=== PATIENT | female | born 1995 ===

== ENCOUNTER 2019-11-29 18:04 | Inpatient (IN) | payer BC ==
[~2019-11-29] VITALS: Ht 160 cm; Wt 78.6 kg
[~2019-11-29 18:04] MED LIST: CEFU500T PO; HYDR-4226 PO
--- NOTE | 2019-11-29 18:25 | NUR ---
COVID SWAB DONE.
--- NOTE | 2019-11-29 18:26 | ED General ---
General Chief Complaint: Fever-Adult/Adol Stated Complaint: BODY ACHES/HEADACHE/LOWER BACK PAIN Source of Information: Patient Exam Limitations: No Limitations History of Present Illness Date Seen by Provider: Nov 29, 2019 Time Seen by Provider: 18:24 Initial Comments To ER with general weakness and malaise for the past 3 days. This started with some bilateral flank pain and urinary frequency and burning. She now has intermittent chest pain. Fevers present, no cough, no shortness of breath and no exposure to ill contacts. She is otherwise healthy. Had Tylenol at 3 PM no ibuprofen today. Timing/Duration: 1-2 Days Severity: Moderate Associated Systoms: Denies Symptoms Allergies and Home Medications Allergies Coded Allergies: No Known Drug Allergies (Unverified , 08/06/11) Home Medications Cefuroxime Axetil 500 Mg Tablet, 500 MG PO BID Prescribed by: CIRO SEVERINO on 01/21/15 1623 Hydrocodone/Acetaminophen 1 Each Tablet, 1 EACH PO Q4H PRN for PAIN Prescribed by: CIRO SEVERINO on 01/21/15 1623 Patient Home Medication List Home Medication List Reviewed: Yes Review of Systems Review of Systems Constitutional: see HPI, chills, fever, malaise, weakness EENTM: see HPI Respiratory: see HPI; No cough Cardiovascular: no symptoms reported Genitourinary: no symptoms reported Musculoskeletal: no symptoms reported Skin: no symptoms reported Psychiatric/Neurological: No Symptoms Reported Hematologic/Lymphatic: No Symptoms Reported Immunological/Allergic: no symptoms reported Past Jiugctv-Tezrbn-Kklsny Hx Patient Social History Recent Foreign Travel: No Contact w/Someone Who Travel: No Immunizations Up To Date Tetanus Booster (TDap): Less than 5yrs PED Vaccines UTD: Yes Seasonal Allergies Seasonal Allergies: No Past Medical History Surgeries: No Respiratory: No Cardiac: No Neurological: No Female Reproductive Disorders: Menstrual Problems Gastrointestinal: No Musculoskeletal: No Endocrine: No Cancer: No Psychosocial: No Integumentary: No Physical Exam Vital Signs Vital Signs - First Documented 11/29/19 18:15 Temp 38.9 Pulse 142 Resp 16 B/P (MAP) 152/91 (111) Pulse Ox 99 O2 Delivery Room Air Capillary Refill : Height, Weight, BMI Height: 5'3" Weight: 120lbs. oz. 54.507304ow; BMI Method:Estimated General Appearance: No Apparent Distress, WD/WN Eyes: Bilateral Eye Normal Inspection, Bilateral Eye PERRL, Bilateral Eye EOMI Neck: Full Range of Motion, Normal Inspection Respiratory: No Accessory Muscle Use, No Respiratory Distress Cardiovascular: Normal Peripheral Pulses, Tachycardia Gastrointestinal: Normal Bowel Sounds, Non Tender, Soft Extremity: Normal Capillary Refill, Normal Inspection Neurologic/Psychiatric: Alert, Oriented x3 Skin: Normal Color, Warm/Dry Focused Exam Lactate Level 11/29/19 18:25: Lactic Acid Level 0.87 Lactic Acid Level Laboratory Tests Test 11/29/19 18:25 Lactic Acid Level 0.87 MMOL/L (0.50-2.00) Progress/Results/Core Measures Suspected Sepsis SIRS Temperature: Pulse: Respiratory Rate: Laboratory Tests 11/29/19 18:25: White Blood Count 20.6H Blood Pressure / Mean: 11/29/19 18:25: Lactic Acid Level 0.87 Laboratory Tests 11/29/19 18:25: Creatinine 0.76, Platelet Count 231, Total Bilirubin 1.7H Results/Orders Lab Results Laboratory Tests Test 11/29/19 18:20 11/29/19 18:25 11/29/19 18:30 Range/Units Urine Color DARK YELLOW Urine Clarity SL CLOUDY Urine pH 6.0 5-9 Urine Specific [place] 1.020 1.016-1.022 Urine Protein 1+ H NEGATIVE Urine Glucose (UA) NEGATIVE NEGATIVE Urine Ketones NEGATIVE NEGATIVE Urine Nitrite NEGATIVE NEGATIVE Urine Bilirubin NEGATIVE NEGATIVE Urine Urobilinogen 1.0 < = 1.0 MG/DL Urine Leukocyte Esterase 2+ H NEGATIVE Urine RBC (Auto) 1+ H NEGATIVE Urine RBC RARE /HPF Urine WBC 50-100 H /HPF Urine Squamous Epithelial Cells 10-25 H /HPF Urine Crystals NONE /LPF Urine Bacteria MODERATE H /HPF Urine Casts NONE /LPF Urine Mucus MODERATE H /LPF Urine Culture Indicated YES White Blood Count 20.6 H 4.3-11.0 10^3/uL Red Blood Count 4.58 4.35-5.85 10^6/uL Hemoglobin 14.2 11.5-16.0 G/DL Hematocrit 41 35-52 % Mean Corpuscular Volume 90 80-99 FL Mean Corpuscular Hemoglobin 31 25-34 PG Mean Corpuscular Hemoglobin Concent 34 32-36 G/DL Red Cell Distribution Width 12.6 10.0-14.5 % Platelet Count 231 130-400 10^3/uL Mean Platelet Volume 10.2 7.4-10.4 FL Neutrophils (%) (Auto) 87 H 42-75 % Lymphocytes (%) (Auto) 6 L 12-44 % Monocytes (%) (Auto) 7 0-12 % Eosinophils (%) (Auto) 0 0-10 % Basophils (%) (Auto) 0 0-10 % Neutrophils # (Auto) 18.0 H 1.8-7.8 X 10^3 Lymphocytes # (Auto) 1.2 1.0-4.0 X 10^3 Monocytes # (Auto) 1.4 H 0.0-1.0 X 10^3 Eosinophils # (Auto) 0.0 0.0-0.3 10^3/uL Basophils # (Auto) 0.0 0.0-0.1 10^3/uL Neutrophils % (Manual) 91 % Lymphocytes % (Manual) 1 % Monocytes % (Manual) 5 % Eosinophils % (Manual) 0 % Basophils % (Manual) 0 % Band Neutrophils 1 % Reactive Lymphocytes 2 % Blood Morphology Comment NORMAL Sodium Level 137 135-145 MMOL/L Potassium Level 3.9 3.6-5.0 MMOL/L Chloride Level 105 98-107 MMOL/L Carbon Dioxide Level 19 L 21-32 MMOL/L Anion Gap 13 5-14 MMOL/L Blood Urea Nitrogen 7 7-18 MG/DL Creatinine 0.76 0.60-1.30 MG/DL Estimat Glomerular Filtration Rate > 60 BUN/Creatinine Ratio 9 Glucose Level 120 H 70-105 MG/DL Lactic Acid Level 0.87 0.50-2.00 MMOL/L Calcium Level 9.6 8.5-10.1 MG/DL Corrected Calcium 8.5-10.1 MG/DL Total Bilirubin 1.7 H 0.1-1.0 MG/DL Aspartate Amino Transf (AST/SGOT) 14 5-34 U/L Alanine Aminotransferase (ALT/SGPT) 11 0-55 U/L Alkaline Phosphatase 88 40-136 U/L C-Reactive Protein High Sensitivity 4.78 H 0.00-0.50 MG/DL Total Protein 8.1 6.4-8.2 GM/DL Albumin 4.6 H 3.2-4.5 GM/DL Serum Test, Qualitative NEGATIVE NEGATIVE My Orders Orders - CIRO SEVERINO HOSE BUILDER Cbc With Automated Diff (11/29/19 18:14) Comprehensive Metabolic Panel (11/29/19 18:14) Hcg,Qualitative Serum (11/29/19 18:14) Ed Iv/Invasive Line Start (11/29/19 18:14) Chest 1 View, Ap/Pa Only (11/29/19 18:14) Hs C Reactive Protein (11/29/19 18:14) Coronavirus Sars-Cov-2 So 2018 (11/29/19 18:14) Ibuprofen Tablet (Motrin Tablet) (11/29/19 18:30) Ns Iv 1000 Ml (Sodium Chloride 0.9%) (11/29/19 18:30) Blood Culture (11/29/19 18:23) Lactic Acid Analyzer (11/29/19 18:23) Manual Differential (11/29/19 18:25) Ceftriaxone For Iv Use (Rocephin For I (11/29/19 19:00) Medications Given in ED Current Medications Medications Dose Ordered Sig/Carloz Route Start Time Stop Time Status Last Admin Dose Admin Ibuprofen 800 mg ONCE ONCE PO 11/29/19 18:30 11/29/19 18:31 DC 11/29/19 18:37 800 MG Vital Signs/I&O 11/29/19 18:15 Temp 38.9 Pulse 142 Resp 16 B/P (MAP) 152/91 (111) Pulse Ox 99 O2 Delivery Room Air Capillary Refill : Departure Communication (Admissions) Time/Spoke to Admitting Phy: 19:[address] Stanley, will admit observation status IV fluids Rocephin. Impression Primary Impression: Urinary tract infection Qualified Codes: N39.0 - Urinary tract infection, site not specified; R31.9 - Hematuria, unspecified Additional Impression: Sepsis Qualified Codes: A41.9 - Sepsis, unspecified organism Disposition: ADMITTED INPATIENT Condition: Stable Admissions Decision to Admit Reason: Admit from ER (General) Decision to Admit/Date: Nov 29, 2019 Time/Decision to Admit Time: 19:10 Departure-Patient Inst. Referrals: [facility] [place]) Primary Care Physician CIRO SEVERINO APRN Nov 29, 2019 18:26
[2019-11-29] MEDS ORDERED: IBUPROFEN 800 MG (MOTRIN) TAB PO ONE (18:30)
[2019-11-29] MEDS ORDERED: NS IV 1000 ML 1,000 ML IV SCH (18:30)
[2019-11-29 18:34] LABS: BASOPHILS % (AUTO) 0 % (0-10); EOSINOPHILS % (AUTO) 0 % (0-10); HEMATOCRIT 41 % (35-52); HEMOGLOBIN 14.2 G/DL (11.5-16.0); LYMPHOCYTES # (AUTO) 1.2 X 10^3 (1.0-4.0); LYMPHOCYTES % (AUTO) 6 % (12-44); MEAN CORPUSCULAR HEMOGLOBIN 31 PG (25-34); MEAN CORPUSCULAR HGB CONC 34 G/DL (32-36); MEAN CORPUSCULAR VOLUME 90 FL (80-99); MEAN PLATELET VOLUME 10.2 FL (7.4-10.4); MONOCYTES # (AUTO) 1.4 X 10^3 (0.0-1.0); MONOCYTES % (AUTO) 7 % (0-12); NEUTROPHILS % (AUTO) 87 % (42-75); PLATELET COUNT 231 10^3/uL (130-400); RED CELL DISTRIBUTION WIDTH 12.6 % (10.0-14.5); WHITE BLOOD COUNT 20.6 10^3/uL (4.3-11.0)
[2019-11-29 18:44] LABS: BILIRUBIN,URINE NEGATIVE (NEGATIVE); CLARITY,URINE SL CLOUDY; GLUCOSE, URINE (UA) NEGATIVE (NEGATIVE); KETONES,URINE NEGATIVE (NEGATIVE); LEUKOCYTE ESTERASE ,URINE 2+ (NEGATIVE); NITRITE,URINE NEGATIVE (NEGATIVE); PROTEIN,URINE 1+ (NEGATIVE)
[2019-11-29 18:49] LABS: BAND NEUTROPHILS 1 %; BASOPHILS % (MANUAL) 0 %; EOSINOPHILS % (MANUAL) 0 %; LYMPHOCYTES % (MANUAL) 1 %; MONOCYTES % (MANUAL) 5 %; NEUTROPHILS % (MANUAL) 91 %; RBC MORPH NORMAL; REACTIVE LYMPHOCYTES 2 %
[2019-11-29 18:51] LABS: ALBUMIN 4.6 GM/DL (3.2-4.5); CHLORIDE 105 MMOL/L (98-107); POTASSIUM 3.9 MMOL/L (3.6-5.0); SODIUM 137 MMOL/L (135-145)
[2019-11-29 18:52] LABS: CALCIUM 9.6 MG/DL (8.5-10.1)
[2019-11-29 18:53] LABS: GLUCOSE 120 MG/DL (70-105); TOTAL PROTEIN 8.1 GM/DL (6.4-8.2)
[2019-11-29 18:53] LABS: COLOR,URINE DARK YELLOW
[2019-11-29 18:54] LABS: BACTERIA,URINE MODERATE /HPF; RBC,URINE RARE /HPF; WBC,URINE 50-100 /HPF
[2019-11-29 18:54] LABS: CARBON DIOXIDE 19 MMOL/L (21-32)
[2019-11-29 18:55] LABS: BILIRUBIN,TOTAL 1.7 MG/DL (0.1-1.0)
--- NOTE | 2019-11-29 18:55 | NUR ---
REPORT GIVEN TO JAZ HOLT.
[2019-11-29 18:57] LABS: ALKALINE PHOSPHATASE 88 U/L (40-136); CREATININE SERUM 0.76 MG/DL (0.60-1.30); GFR ESTIMATED > 60
[2019-11-29 18:58] LABS: BUN/CREATININE RATIO 9
[2019-11-29 19:00] LABS: ALANINE AMINOTRANSFERASE 11 U/L (0-55)
[2019-11-29] MEDS ORDERED: cefTRIAXone FOR IV USE 1,000 MG in WATER (STERILE) FOR INJECTION 10 ML IV ONE (19:00)
--- NOTE | 2019-11-29 19:25 | Diagnostic Imaging Report ---
INDICATION: Weakness and body aches and headache. Portable chest obtained at 0632 p.m. Heart and mediastinal silhouette are normal in appearance. The lungs are clear. There is no pneumothorax or pleural fluid. IMPRESSION: Negative chest. Dictated by: Dictated on workstation # [id number]
--- OUTSIDE RECORDS SUMMARY | 2019-11-29 19:49 | XMS REPORT ---
Author Author Laurita Palacios Organization [facility] Address [address] [place] [address] Care Team Providers Care Lamination Builder Name Role Phone RAMIREZ Palacios Unavailable PROBLEMS Type Condition ICD9-CM Code [id number] Code Onset Dates Condition S tatus SNOMED Code Problem Other general medical examination for administrative purpo ses V70.3 Active [id number] ALLERGIES No Information ENCOUNTERS Encounter Location Date Diagnosis [facility] [address] [facility] [id number] [address] [place] [address] May, Viral URI J06.9 and Acute ur ticaria L50.8 [facility] [address] [id number] September, [facility] [address] [id number] September, [facility] [address] [address] Feb, [facility] [address] [address] Feb, [facility] [address] [address] Nov, [facility] [address] [address] Jul, IMMUNIZATIONS No Known Immunizations SOCIAL HISTORY Never Assessed REASON FOR VISIT PLAN OF CARE VITAL SIGNS Height 62 in 2013-10-01 Weight 132.8 lbs 2013-10-01 Temperature 98 degrees Fahrenheit 2013-10-01 Heart Rate 84 bpm 2013-10-01 Respiratory Rate 16 2013-10-01 Blood pressure systolic 118 mmHg 2013-10-01 Blood pressure diastolic 78 mmHg 2013-10-01 MEDICATIONS No Known Medications RESULTS No Results PROCEDURES Procedure Date Ordered Result Body Site VISUAL ACUITY SCREEN October 01, 2013 INSTRUCTIONS MEDICATIONS ADMINISTERED No Known Medications
--- OUTSIDE RECORDS SUMMARY | 2019-11-29 19:49 | XMS REPORT ---
Author Author Laurita FRANCISCO Organization [facility] Address [address] [place] [address] Care Team Providers Care Documentation Designer Name Role Phone MARYAM RADHA Unavailable PROBLEMS Type Condition ICD9-CM Code [id number] Code Onset Dates Condition S tatus SNOMED Code Problem Other general medical examination for administrative purpo ses V70.3 Active [id number] ALLERGIES No Known Allergies ENCOUNTERS Encounter Location Date Diagnosis [facility] [address] [facility] [id number] [address] [place] [phone] May, Viral URI J06.9 and Acute ur ticaria L50.8 [facility] [place] [address] [facility] [id number] [address] [place] [phone] September, [facility] [place] [address] [facility] [id number] [address] [place] [phone] September, [facility] [place] [address] [place] [id number] [address] [place] [phone] Feb, [facility] [place] [address] [facility] [id number] [address] [place] [phone] Feb, [facility] [place] [address] [facility] [id number] [address] [place] [phone] Nov, [facility] [place] [address] [facility] [id number] [address] [place] [phone] Jul, IMMUNIZATIONS Vaccine Route Administration Date Status DEXAMETHASONE 4MG/ML (PER 1 MG) IM Intramuscular Jun 04, 2017 Administered DEPO MEDROL 40 MG/ML IM Intramuscular Jun 04, 2017 Administer ed SOCIAL HISTORY Never Assessed REASON FOR VISIT body aches, headaches, red itching/burning area under left arm only. been there for 3 days. also had other symptoms for 3 days. [email or web address] PLAN OF CARE Activity Details Follow Up prn Reason: VITAL SIGNS Height 62 in 2017-06-04 Weight 160.6 lbs 2017-06-04 Temperature 98.3 degrees Fahrenheit 2017-06-04 Heart Rate 88 bpm 2017-06-04 Respiratory Rate 20 2017-06-04 BMI 29.37 kg/m2 2017-06-04 Blood pressure systolic 122 mmHg 2017-06-04 Blood pressure diastolic 74 mmHg 2017-06-04 MEDICATIONS No Known Medications RESULTS No Results PROCEDURES Procedure Date Ordered Result Body Site DEPO MEDROL 40 MG/ML Jun 04, 2017 DEXAMETHASONE 4MG/ML (PER 1 MG) Jun 04, 2017 THER/PROPH/DIAG INJ, SC/IM Jun 04, 2017 INSTRUCTIONS MEDICATIONS ADMINISTERED No Known Medications
--- OUTSIDE RECORDS SUMMARY | 2019-11-29 19:49 | XMS REPORT | Continuity of Care Document ---
Author Organization Unknown Address Unknown Phone Unavailable Allergies There is no data. Medications There is no data. Problems Date Dx Coded Attending Type Code Diagnosis Diagnosed By 07/14/2010 RAMIREZ BALDWIN APRN 704.00 ALOPECIA UNSPECIFIED 07/14/2010 RAMIREZ BALDWIN APRN 780.79 MALAISE AND FATIGUE 11/15/2010 RAMIREZ BALDWIN APRN 372.00 ACUTE CONJUNCTIVITIS UNSPECIFIED 01/29/2011 RAMIREZ BALDWIN APRN 626.4 IRREGULAR MENSTRUAL CYCLE 10/01/2013 RAMIREZ BALDWIN APRN V70.3 SPORTS PHYSICAL 10/01/2013 RAMIREZ BALDWIN APRN 626.9 MENSTRUATION AND OTHER ABNORMAL BLEEDING FROM FEMALE G ENITAL TRACT Procedures Code Description [place] [id number] VISU AL ACUITY SCREEN 10/01/2013 Results There is no data. Encounters ACCT No. Visit Date/Time Discharge Status Pt. Type Provider Facility Loc./Unit Complaint [id number] 10/01/2013 14:30:00 10/01/2013 23:59: 59 [facility] Outpatient RAMIREZ BALDWIN APRN [id number] 06/04/2017 16:55:00 06/04/2017 23:59:[address] [facility] Outpatient [facility]
[2019-11-29 20:02] VITALS: BP 123/69
[2019-11-29] MEDS ORDERED: LACTATED RINGERS 1,000 ML IV ONE (22:06)
[2019-11-29] MEDS: LACTATED RINGERS 1,000 ML IV SCH (22:10)
[2019-11-29] MEDS ORDERED: ONDANSETRON 4 MG/2 ML (SDV) Z0FRAN IV PRN (23:45)
[2019-11-30] VITALS (7 sets, daily range): BP systolic 94–123; BP diastolic 57–76
[2019-11-30] MEDS: IBUPROFEN 800 MG (MOTRIN) TAB PO PRN ×2 (02:12→14:16)
[2019-11-30] MEDS: LACTATED RINGERS 1,000 ML IV SCH ×3 (05:50→23:18)
[2019-11-30 06:24] LABS: BASOPHILS % (AUTO) 0 % (0-10); EOSINOPHILS % (AUTO) 0 % (0-10); HEMATOCRIT 37 % (35-52); HEMOGLOBIN 12.2 G/DL (11.5-16.0); LYMPHOCYTES # (AUTO) 1.3 X 10^3 (1.0-4.0); LYMPHOCYTES % (AUTO) 8 % (12-44); MEAN CORPUSCULAR HEMOGLOBIN 30 PG (25-34); MEAN CORPUSCULAR HGB CONC 33 G/DL (32-36); MEAN CORPUSCULAR VOLUME 91 FL (80-99); MEAN PLATELET VOLUME 10.6 FL (7.4-10.4); MONOCYTES # (AUTO) 1.3 X 10^3 (0.0-1.0); MONOCYTES % (AUTO) 9 % (0-12); NEUTROPHILS # (AUTO) 12.6 X 10^3 (1.8-7.8); NEUTROPHILS % (AUTO) 83 % (42-75); PLATELET COUNT 201 10^3/uL (130-400); RED CELL DISTRIBUTION WIDTH 12.4 % (10.0-14.5); WHITE BLOOD COUNT 15.3 10^3/uL (4.3-11.0)
[2019-11-30 06:35] LABS: ALBUMIN 3.7 GM/DL (3.2-4.5); CHLORIDE 108 MMOL/L (98-107); POTASSIUM 3.4 MMOL/L (3.6-5.0); SODIUM 138 MMOL/L (135-145)
[2019-11-30 06:36] LABS: CALCIUM 8.8 MG/DL (8.5-10.1)
[2019-11-30 06:37] LABS: GLUCOSE 125 MG/DL (70-105); TOTAL PROTEIN 6.5 GM/DL (6.4-8.2)
[2019-11-30 06:39] LABS: CARBON DIOXIDE 19 MMOL/L (21-32)
[2019-11-30 06:41] LABS: ALKALINE PHOSPHATASE 88 U/L (40-136); CREATININE SERUM 0.71 MG/DL (0.60-1.30); GFR ESTIMATED > 60
[2019-11-30 06:42] LABS: BUN/CREATININE RATIO 8
[2019-11-30 06:44] LABS: ALANINE AMINOTRANSFERASE 8 U/L (0-55)
[2019-11-30] MEDS: ACETAMINOPHEN 325 MG TABLET PO PRN ×2 (08:10→19:37)
--- NOTE | 2019-11-30 09:50 | History & Physical-Hospitalist ---
MILES HUSAIN MED STUDENT 11/30/19 0950: History of Present Illness HPI/Chief Complaint Laurita Mederos is a 24 year old female who arrived in the ER yesterday due to bilateral flank pain, fevers, weakness, and light-headedness. She reports beginning to have lower back and flank pain several days ago that she attributed to exercise. The pain worsened in her b/l flanks over the next days, as well as fever, light-headedness, urinary frequency, and weakness. Also experienced intermittent CP that she describes as sharp, not associated with activity. She reports experiencing a numb discomfort in her legs with the flank pain. Reports having urinary frequency but no dysuria. Today she reports having mild R flank pain that is improves with ibuprofen. Denies any fever, chills, n/v, abdominal pain, dysuria, CP, and SOB. Source: patient Exam Limitations: no limitations Date Seen 11/30/19 Attending Physician Amaris Stanley MD [facility] [place] [facility] Referring Physician Date of Admission Nov 29, 2019 at 19:09 Home Medications & Allergies Home Medications Reviewed patient Home Medication Reconciliation performed by pharmacy medication reconciliations point of care technician and/or nursing. Patients Allergies have been reviewed. Allergies Allergies Coded Allergies No Known Drug Allergies (Unverified08/06/11) Past Xyfwott-Chgyxp-Ueuqth Hx Patient Social History Employed/Student: employed ([employer]), student, full-time Alcohol Use: Occasionally Uses Smoking Status: Never a Smoker Recent Foreign Travel: No Contact w/other who traveled: No Recent Infectious Disease Expo: No Immunizations Up To Date Tetanus Booster (TDap): Less than 5yrs Pediatric: Yes Seasonal Allergies Seasonal Allergies: No Past Medical History : No Female Reproductive Disorders: Menstrual Problems Review of Systems Constitutional: No chills, No dizziness, No fever, No weakness Respiratory: No dyspnea on exertion, No short of breath Cardiovascular: No chest pain, No edema, No palpitations, No syncope Gastrointestinal: No abdominal pain, No constipation, No diarrhea, No nausea, No vomiting Genitourinary: No dysuria; frequency; No hesitancy Psychiatric/Neurological: Denies Numbness, Denies Paresthesia, Denies Tingling Physical Exam Physical Exam Vital Signs Vital Signs - First Documented 11/29/19 11/29/19 18:15 20:02 Temp 38.9 Pulse 142 Resp 16 B/P (MAP) 152/91 (111) Pulse Ox 99 O2 Delivery Room Air O2 Flow Rate 99.00 Capillary Refill : Less Than 3 Seconds Height, Weight, BMI Height: 5'3" Weight: 120lbs. oz. 54.282920nb; 30.70 BMI Method:Estimated General Appearance: No Apparent Distress, Obese HEENT: PERRL/EOMI; No Pale Conjunctivae (L), No Pale Conjunctivae (R), No Scleral Icterus (L), No Scleral Icterus (R) Neck: Normal Inspection, Non Tender, Supple Respiratory: Lungs Clear, Normal Breath Sounds, No Accessory Muscle Use, No Res piratory Distress Cardiovascular: Regular Rate, Rhythm, No Edema, No Murmur, Normal Peripheral Pulses Gastrointestinal: Normal Bowel Sounds, No Organomegaly, Soft, Tenderness (RUQ 'numb' discomfort to palpation, mild tenderness in RLQ and LLQ near iliac crest) Back: CVA Tenderness (R) Extremity: Normal Capillary Refill, Normal Inspection, Non Tender, No Calf Tenderness Neurologic/Psychiatric: Alert, Oriented x3, Normal Mood/Affect Skin: Normal Color, Warm/Dry Results Results/Procedures Labs Laboratory Tests 11/29/19 18:25 11/30/19 05:30 Patient resulted labs reviewed. Assessment/Plan Admission Diagnosis UTI Assessment and Plan Pyelonephritis - continue rocephin, IV fluids, monitor symptoms - continue current pain management - encourage ambulation High blood glucose - recommend outpatient diabetes screening Clinical Quality Measures DVT/VTE Risk/Contraindication: Risk Factor Score Per Nursin RFS Level Per Nursing on Admit: 1=Low/No VTE PPX EDEN WHITEHEAD DO 11/30/19 1318: History of Present Illness HPI/Chief Complaint CC: Fever with flank pain HPI: This is a 24yo female who presents to the ER with flank pain, fever, and chills found to have acute pyelonephritis with too numerous to count white blood cells in the urine, in need of IV antibiotics and supportive are with antipyretics. At this current time pt feels much better and she will ambulate today and likely go home tomorrow. Hopefully I will have the urine culture completed. Date Seen 11/30/2019 Time Seen by a Provider: 10:00 Past Bfgrpwc-Xaigbx-Szlglt Hx Past Med/Social Hx: Reviewed Nursing Past Med/Soc Hx, Reviewed and Corrections made Patient Social History Marrital Status: single Employed/Student: employed ([employer]) Alcohol Use: Denies Use Smoking Status: Never a Smoker Review of Systems Constitutional: see HPI, chills, fever Physical Exam Physical Exam General Appearance: No Apparent Distress Eyes: Right Eye Normal Inspection, Right Eye PERRL HEENT: PERRL/EOMI, TMs Normal, Normal ENT Inspection, Pharynx Normal, Moist Mucous Membranes Neck: Full Range of Motion, Normal Inspection, Non Tender Respiratory: Chest Non Tender, Lungs Clear, Normal Breath Sounds, No Accessory Muscle Use, No Respiratory Distress Cardiovascular: Regular Rate, Rhythm, No Edema, No Gallop, No JVD, No Murmur, Normal Peripheral Pulses Gastrointestinal: Normal Bowel Sounds, No Organomegaly, No Pulsatile Mass, Non Tender, Soft Back: Normal Inspection, No CVA Tenderness, No Vertebral Tenderness Extremity: Normal Capillary Refill, Normal Inspection, Normal Range of Motion, Non Tender, No Calf Tenderness, No Pedal Edema Neurologic/Psychiatric: Alert, Oriented x3, No Motor/Sensory Deficits, Normal Mood/Affect Skin: Normal Color, Warm/Dry Lymphatic: No Adenopathy Assessment/Plan Admission Diagnosis Sepsis Pyelonephritis Fever Plan: IVF ABX Admission Status: Observation Assessment and Plan Assessment: Acute Pyelo Leukocytosis Fever Plan: Rocephin IV fluids Diagnosis/Problems Diagnosis/Problems (1) Sepsis Status: Acute Qualifiers: Sepsis type: sepsis due to unspecified organism Sepsis acute organ dysfunction status: unspecified Qualified Codes: A41.9 - Sepsis, unspecified organism (2) Urinary tract infection Status: Acute Qualifiers: Urinary tract infection type: site unspecified Hematuria presence: with hematuria Qualified Codes: N39.0 - Urinary tract infection, site not specified; R31.9 - Hematuria, unspecified Supervisory-Addendum Brief Verification & Attestation Participated in pt care: history, MDM, physical Personally performed: exam, history, MDM, supervision of care Care discussed with: Medical Student Procedures: n/a Results interpretation: Verified all documentation Verification and Attestation of Medical Student E/M Service A medical student performed and documented this service in my presence. I reviewed and verified all information documented by the medical student and made modifications to such information, when appropriate. I personally performed the physical exam and medical decision making. Eden Whitehead, Nov 30, 2019,21:10 MILES HUSAIN MED STUDENT Nov 30, 2019 09:50 EDEN WHITEHEAD DO Nov 30, 2019 13:18
[2019-11-30] MEDS ORDERED: ACET325C7 PO (10:18)
--- NOTE | 2019-11-30 10:38 | NUR ---
I SPOKE WITH THE PATIENT AND WENT THROUGH THE EXTERNAL MED HISTORY TO COMPLETE THE MED REC. OTC: TYLENOL
[2019-11-30] MEDS ORDERED: KCL 20 MEQ TAB (K-DUR) PO ONE (11:15)
[2019-11-30] MEDS ORDERED: diphenhydrAMINE 25 MG TAB (BENADRYL) PO ONE (16:00)
[2019-11-30] MEDS: KCL 20 MEQ TAB (K-DUR) PO SCH (19:30)
[2019-11-30] MEDS: cefTRIAXone 1,000 MG/SWFI 10 ML IV PUSH IV SCH ×2 (21:44)
[2019-12-01] VITALS (8 sets, daily range): BP systolic 90–126; BP diastolic 52–83
[2019-12-01 05:53] LABS: BASOPHILS % (AUTO) 0 % (0-10); EOSINOPHILS # (AUTO) 0.1 10^3/uL (0.0-0.3); EOSINOPHILS % (AUTO) 1 % (0-10); HEMATOCRIT 35 % (35-52); HEMOGLOBIN 11.4 G/DL (11.5-16.0); LYMPHOCYTES # (AUTO) 1.6 X 10^3 (1.0-4.0); LYMPHOCYTES % (AUTO) 13 % (12-44); MEAN CORPUSCULAR HEMOGLOBIN 31 PG (25-34); MEAN CORPUSCULAR HGB CONC 33 G/DL (32-36); MEAN CORPUSCULAR VOLUME 93 FL (80-99); MEAN PLATELET VOLUME 10.6 FL (7.4-10.4); MONOCYTES # (AUTO) 1.3 X 10^3 (0.0-1.0); MONOCYTES % (AUTO) 11 % (0-12); NEUTROPHILS # (AUTO) 9.1 X 10^3 (1.8-7.8); NEUTROPHILS % (AUTO) 75 % (42-75); PLATELET COUNT 185 10^3/uL (130-400); RED CELL DISTRIBUTION WIDTH 12.7 % (10.0-14.5); WHITE BLOOD COUNT 12.1 10^3/uL (4.3-11.0)
[2019-12-01 06:02] LABS: ALBUMIN 3.4 GM/DL (3.2-4.5); CHLORIDE 109 MMOL/L (98-107); POTASSIUM 3.6 MMOL/L (3.6-5.0); SODIUM 139 MMOL/L (135-145)
[2019-12-01 06:03] LABS: CALCIUM 8.5 MG/DL (8.5-10.1)
[2019-12-01 06:04] LABS: GLUCOSE 120 MG/DL (70-105); TOTAL PROTEIN 6.1 GM/DL (6.4-8.2)
[2019-12-01 06:05] LABS: CARBON DIOXIDE 20 MMOL/L (21-32)
[2019-12-01 06:06] LABS: BILIRUBIN,TOTAL 0.5 MG/DL (0.1-1.0)
[2019-12-01 06:08] LABS: ALKALINE PHOSPHATASE 87 U/L (40-136); CREATININE SERUM 0.66 MG/DL (0.60-1.30); GFR ESTIMATED > 60
[2019-12-01 06:09] LABS: BUN/CREATININE RATIO 8
[2019-12-01 06:11] LABS: ALANINE AMINOTRANSFERASE 8 U/L (0-55)
[2019-12-01] MEDS: KCL 20 MEQ TAB (K-DUR) PO SCH ×2 (07:48→21:20)
[2019-12-01] MEDS: IBUPROFEN 800 MG (MOTRIN) TAB PO PRN ×2 (07:49→17:40)
[2019-12-01] MEDS: LACTATED RINGERS 1,000 ML IV SCH (09:43)
--- NOTE | 2019-12-01 09:46 | Progress Note - Hospitalist ---
MILES HUSAIN MED STUDENT 12/01/19 0946: Subjective HPI/CC On Admission Date Seen by Provider: Dec 01, 2019 CC: Fever with flank pain HPI: This is a 24yo female who presents to the ER with flank pain, fever, and chills found to have acute pyelonephritis with too numerous to count white blood cells in the urine, in need of IV antibiotics and supportive are with antipyretics. At this current time pt feels much better and she will ambulate today and likely go home tomorrow. Hopefully I will have the urine culture completed. Subjective/Events-last exam Since seen yesterday, she has continued to have fevers and chills as well as b/l flank pain. She had fevers and chills over the night, no fever this morning, but feels warm and that she is sweating a lot. Her R flank pain is constant and exacerbated by movement, particularly of her R leg. Her L flank pain consists of brief sharp pains that she associates with movement or pressure to the area, at rest she has no pain on L flank. She is concerned about her BP, has felt dizzy after standing when walking to the bathroom. Denies any CP, cough, SOB, nausea, vomiting. Review of Systems General: Chills, Other (fever) HEENT: Head Aches; No Sinus Congestion, No Sore Throat Pulmonary: No Dyspnea, No Cough Cardiovascular: Lt Headedness; No: Chest Pain, Palpitations, Edema Gastrointestinal: Abdominal Pain (bilateral flank pain), Constipation (no BM since arrival, denies any discomfort right now); No: Nausea, Vomiting, Diarrhea Genitourinary: No Dysuria, No Frequency; Retention (feelse she has urinated less than normal for her) Neurological: No: Weakness, Numbness Focused Exam Lactate Level 11/29/19 18:25: Lactic Acid Level 0.87 Objective Exam Vital Signs Vital Signs Date Time Temp Pulse Resp B/P (MAP) Pulse Ox O2 Delivery O2 Flow Rate FiO2 12/01/19 08:00 37.2 98 18 126/83 (97) 99 Room Air 11/29/19 20:02 99.00 Capillary Refill : Less Than 3 Seconds General Appearance: No Apparent Distress, WD/WN HEENT: PERRL/EOMI; No Pale Conjunctivae (L), No Pale Conjunctivae (R), No Scleral Icterus (L), No Scleral Icterus (R) Neck: Normal Inspection, Non Tender, Supple Respiratory: Lungs Clear, Normal Breath Sounds, No Accessory Muscle Use, No Respiratory Distress Cardiovascular: Regular Rate, Rhythm, No Edema, No Murmur, Normal Peripheral Pulses Gastrointestinal: Normal Bowel Sounds, No Organomegaly, Soft, Tenderness ('numb' pain and discomfort in b/l upper quadrants near flank worse than yesterday, tenderness to b/l lower quadrants by iliac crest present but improved) Extremity: Normal Capillary Refill, Normal Inspection, Non Tender, No Calf Tenderness Neurologic/Psychiatric: Alert, Oriented x3, Normal Mood/Affect Skin: Normal Color, Diaphoresis Results/Procedures Lab Laboratory Tests 12/01/19 05:19 Patient resulted labs reviewed. Assessment/Plan Assessment and Plan Assess & Plan/Chief Complaint Pyelonephritis - continue rocephin, IV fluids - continue current management of pain, fevers - encourage ambulation - awaiting culture susceptibilities Constipation - miralax High blood glucose - recommend outpatient diabetes screening Clinical Quality Measures DVT/VTE Risk/Contraindication: Risk Factor Score Per Nursin RFS Level Per Nursing on Admit: 1=Low/No VTE PPX EDEN WHITEHEAD DO 12/01/19 1425: Subjective HPI/CC On Admission Time Seen by Provider: 10:00 Subjective/Events-last exam Pt doing pretty well White count down to 12 Fever last night as prepared Pt for MiraLax will be started along with Senna for bowels Hep-LockingIV fluid Told her to increase fluid intake Review of Systems General: Fatigue, Malaise Neurological: Weakness Objective Exam General Appearance: No Apparent Distress, WD/WN HEENT: PERRL/EOMI, TMs Normal, Normal ENT Inspection, Pharynx Normal, Moist Mucous Membranes Neck: Full Range of Motion, Normal Inspection, Non Tender, Supple, Carotid Bruit Respiratory: Chest Non Tender, Lungs Clear, Normal Breath Sounds, No Accessory Muscle Use, No Respiratory Distress Cardiovascular: Regular Rate, Rhythm, No Edema, No Gallop, No JVD, No Murmur, Normal Peripheral Pulses Gastrointestinal: Normal Bowel Sounds, No Organomegaly, No Pulsatile Mass, Non Tender, Soft Back: Normal Inspection, No CVA Tenderness, No Vertebral Tenderness Extremity: Normal Capillary Refill, Normal Inspection, Normal Range of Motion, Non Tender, No Calf Tenderness, No Pedal Edema Neurologic/Psychiatric: Alert, Oriented x3, No Motor/Sensory Deficits, Normal Mood/Affect Skin: Normal Color, Warm/Dry Lymphatic: No Adenopathy Assessment/Plan Assessment and Plan Assess & Plan/Chief Complaint Assessment; Pyelonephritis Sepsis Plan: Stop IVF DC home tomorrow Await urine culture Supervisory-Addendum Brief Verification & Attestation Participated in pt care: history, MDM, physical Personally performed: exam, history, MDM, supervision of care Care discussed with: Medical Student Procedures: n/a Results interpretation: Verified all documentation Verification and Attestation of Medical Student E/M Service A medical student performed and documented this service in my presence. I reviewed and verified all information documented by the medical student and made modifications to such information, when appropriate. I personally performed the physical exam and medical decision making. Eden Whitehead, Dec 01, 2019,18:08 MILES HUSAIN MED STUDENT Dec 01, 2019 09:46 EDEN WHITEHEAD DO Dec 01, 2019 14:25
[2019-12-01] MEDS ORDERED: SENNA W/DOCUSATE (SENOKOT S) TABLET PO NR (10:30)
[2019-12-01] MEDS ORDERED: polyethylene glycoL POWDER 17 GM (MIRALAX) PACK PO NR (10:30)
[2019-12-01] MEDS ORDERED: polyethylene glycoL POWDER 17 GM (MIRALAX) PACK PO SCH (21:00)
[2019-12-01] MEDS: SENNA W/DOCUSATE (SENOKOT S) TABLET PO SCH (21:20)
[2019-12-01] MEDS: cefTRIAXone 1,000 MG/SWFI 10 ML IV PUSH IV SCH ×2 (22:14)
[2019-12-02] VITALS: BP 112/61
[2019-12-02 04:00] VITALS: BP 128/63
[2019-12-02 06:41] LABS: BASOPHILS % (AUTO) 0 % (0-10); EOSINOPHILS # (AUTO) 0.2 10^3/uL (0.0-0.3); EOSINOPHILS % (AUTO) 2 % (0-10); HEMATOCRIT 36 % (35-52); HEMOGLOBIN 11.8 G/DL (11.5-16.0); LYMPHOCYTES # (AUTO) 1.8 X 10^3 (1.0-4.0); LYMPHOCYTES % (AUTO) 18 % (12-44); MEAN CORPUSCULAR HEMOGLOBIN 31 PG (25-34); MEAN CORPUSCULAR HGB CONC 33 G/DL (32-36); MEAN CORPUSCULAR VOLUME 93 FL (80-99); MEAN PLATELET VOLUME 10.8 FL (7.4-10.4); MONOCYTES # (AUTO) 1.1 X 10^3 (0.0-1.0); MONOCYTES % (AUTO) 10 % (0-12); NEUTROPHILS % (AUTO) 70 % (42-75); PLATELET COUNT 222 10^3/uL (130-400); RED CELL DISTRIBUTION WIDTH 12.9 % (10.0-14.5); WHITE BLOOD COUNT 10.1 10^3/uL (4.3-11.0)
[2019-12-02 06:52] LABS: ALBUMIN 3.6 GM/DL (3.2-4.5); CHLORIDE 107 MMOL/L (98-107); POTASSIUM 3.8 MMOL/L (3.6-5.0); SODIUM 137 MMOL/L (135-145)
[2019-12-02 06:54] LABS: CALCIUM 8.8 MG/DL (8.5-10.1); GLUCOSE 112 MG/DL (70-105)
[2019-12-02 06:55] LABS: TOTAL PROTEIN 6.7 GM/DL (6.4-8.2)
[2019-12-02 06:56] LABS: CARBON DIOXIDE 20 MMOL/L (21-32)
[2019-12-02 06:57] LABS: BILIRUBIN,TOTAL 0.3 MG/DL (0.1-1.0)
[2019-12-02 06:58] LABS: ALKALINE PHOSPHATASE 79 U/L (40-136); CREATININE SERUM 0.64 MG/DL (0.60-1.30); GFR ESTIMATED > 60
[2019-12-02 06:59] LABS: BUN/CREATININE RATIO 11
[2019-12-02 07:01] LABS: ALANINE AMINOTRANSFERASE 9 U/L (0-55)
[2019-12-02] MEDS: SENNA W/DOCUSATE (SENOKOT S) TABLET PO SCH (07:54)
[2019-12-02] MEDS: KCL 20 MEQ TAB (K-DUR) PO SCH (07:54)
[2019-12-02] MEDS: ACETAMINOPHEN 325 MG TABLET PO PRN (07:55)
[2019-12-02 08:00] VITALS: BP 115/64
[2019-12-02] MEDS ORDERED: CEFD300C3 PO (11:28)
--- NOTE | 2019-12-02 11:31 | NUR ---
"RD ASSESSMENT PMHx: no significant PMH; PT INTERACTION: Pt was awake and pleasant during nutrition assessment. Pt states current appetite is pretty good. Note avg PO intake 50-75% x2d, per chart review. Pt states following a regular diet at home, and has no issues with chewing/swallowing food. Pt states no recent issues with nausea, vomiting, constipation, or diarrhea. Pt states recent wt gain, but unsure of amount/timeframe. Note unable to determine recent wt hx, per chart review. ABNORMAL NUTRITION-RELATED LAB VALUES LOW: HIGH: glu 112 Est. kcal needs: 1175 kcal | 15 kcal/kg Est. Pro needs: 63 g Pro | 0.8 g Pro/kg PES STATEMENT: Inadequate oral intake (NI-2.1) related to loss of appetite as evidenced by pt interview | avg PO intake 50-75% x2d INTERVENTION: Continue with current diet order of Regular diet. Pt may benefit from nutrition supplementation if PO intake declines. Will continue to follow and reassess as pt needs, intake, and status change. MONITOR/EVALUATE: PO Intake; Plan of Care; Hydration Status; Weight Status; Lab Values Alfonzo Benton, MS, RD, LD"
--- NOTE | 2019-12-02 11:32 | Discharge Summary ---
MILES HUSAIN MED STUDENT 12/02/19 1132: Diagnosis/Chief Complaint Date of Admission Dec 01, 2019 at 09:46 Discharge Date: Dec 02, 2019 Admission Diagnosis Sepsis Pyelonephritis Fever Plan: IVF ABX [facility] Discharge Diagnosis Pyelonephritis (1) Sepsis Status: Acute (2) Urinary tract infection Status: Acute Discharge Summary Discharge Physical Exam Allergies: Coded Allergies: No Known Drug Allergies (Unverified , 08/06/11) Vitals & I&Os Vital Signs Date Time Temp Pulse Resp B/P (MAP) Pulse Ox O2 Delivery O2 Flow Rate FiO2 12/02/19 11:35 12/02/19 08:00 37.0 82 18 99 Room Air 12/02/19 08:00 99.00 General Appearance: No Apparent Distress, Obese HEENT: PERRL/EOMI; No Pale Conjunctivae (L), No Pale Conjunctivae (R), No Scleral Icterus (L), No Scleral Icterus (R) Respiratory: Lungs Clear, Normal Breath Sounds, No Accessory Muscle Use, No Respiratory Distress Cardiovascular: Regular Rate, Rhythm, No Edema, No Murmur, Normal Peripheral Pulses Gastrointestinal: No Organomegaly, Soft, Abnormal Bowel Sounds (decreased), Tenderness (lower quadrant tenderness near iliac crests bilaterally, improving) Extremity: Normal Range of Motion, Non Tender, No Calf Tenderness, No Pedal Edema Skin: Normal Color, Warm/Dry Neurologic/Psychiatric: Alert, Oriented x3, Normal Mood/Affect Hospital Course Laurita Mederos is a 24 year old female who arrived in the ER 11/28 due to bilateral flank pain, fevers, weakness, and light-headedness, after having lower back and b/l flank pain for several days that she initially attribute dto exercise. The pain worsened, and she developed fever, light headedness, urinary frequency, weakness, and intermittent sharp CP not associated with activity. She had discomfort she describes as nubmness in her legs with the flank pain. She was diagnosed with pyelonephritis and started on ceftriaxone and IV fluids. Her fever, chills, and pain all improved since admission, only mild subjective fevers and mild R flank pain today. Her light headedness, weakness, leg discomfort, and CP have all resolved. Today she describes feeling much improved, has pressure-like pain on R side and to a lesser extent on the left that is exacerbated by lying on her side. Noticed blood clots in her urine starting late yesterday, believes it is due to menstruation. She was discharged this morning, to take cefdinir for the next 7 days. Labs (last 24 hrs) Laboratory Tests 12/02/19 05:20: White Blood Count 10.1, Red Blood Count 3.85L, Hemoglobin 11.8, Hematocrit 36, Mean Corpuscular Volume 93, Mean Corpuscular Hemoglobin 31, Mean Corpuscular Hemoglobin Concent 33, Red Cell Distribution Width 12.9, Platelet Count 222, Mean Platelet Volume 10.8H, Neutrophils (%) (Auto) 70, Lymphocytes (%) (Auto) 18, Monocytes (%) (Auto) 10, Eosinophils (%) (Auto) 2, Basophils (%) (Auto) 0, Neutrophils # (Auto) 7.0, Lymphocytes # (Auto) 1.8, Monocytes # (Auto) 1.1H, Eosinophils # (Auto) 0.2, Basophils # (Auto) 0.0, Sodium Level 137, Potassium Level 3.8, Chloride Level 107, Carbon Dioxide Level 20L, Anion Gap 10, Blood Urea Nitrogen 7, Creatinine 0.64, Estimat Glomerular Filtration Rate > 60, BUN/Creatinine Ratio 11, Glucose Level 112H, Calcium Level 8.8, Corrected Calciu m 9.1, Total Bilirubin 0.3, Aspartate Amino Transf (AST/SGOT) 9, Alanine Aminotransferase (ALT/SGPT) 9, Alkaline Phosphatase 79, Total Protein 6.7, Albumin 3.6 Microbiology 11/29/19 Blood Culture - Preliminary, Resulted No growth 11/29/19 Urine Culture - Final, Complete Escherichia coli Patient resulted labs reviewed. Pending Labs Discharge Home Medications: Active Scripts Active Cefdinir 300 Mg Capsule 300 Mg PO BID Reported Tylenol (Acetaminophen) 325 Mg Capsule 650 Mg PO BID PRN Instructions to patient/family Please see electronic discharge instructions given to patient. Clinical Quality Measures DVT/VTE Risk/Contraindication: Risk Factor Score Per Nursin RFS Level Per Nursing on Admit: 1=Low/No VTE PPX EDEN WHITEHEAD DO 12/02/19 2100: Diagnosis/Chief Complaint Discharge Diagnosis (1) Sepsis Status: Acute (2) Urinary tract infection Status: Acute Discharge Summary Discharge Physical Exam Allergies: Coded Allergies: No Known Drug Allergies (Unverified , 08/06/11) General Appearance: No Apparent Distress, WD/WN, Chronically ill Hospital Course Was the Problem List Reviewed?: Yes Hospital course: Pt had an uneventful hospital course, she was admitted for acute pyelonephritis with leukocytosis and sepsis. IV fluid was given, Rocephin broad-spectrum antibiotics initiated, E. Coli, mae-sensitive was revealed, Pt was switched over to Omnicef and she was discharged in improved condition with a normal white count, no fever and completely hydrated and ambulatory. Discussion & Recommendations Discharge Planning: <30 minutes discharge planning Supervisory-Addendum Brief Verification & Attestation Participated in pt care: history, MDM, physical Personally performed: exam, history, MDM, supervision of care Care discussed with: Medical Student Procedures: n/a Results interpretation: Verified all documentation Verification and Attestation of Medical Student E/M Service A medical student performed and documented this service in my presence. I reviewed and verified all information documented by the medical student and made modifications to such information, when appropriate. I personally performed the physical exam and medical decision making. Eden Whitehead, Dec 02, 2019,21:00 Problem Qualifiers (1) Sepsis: Sepsis type: sepsis due to unspecified organism Sepsis acute organ dysfunction status: unspecified Qualified Codes: A41.9 - Sepsis, unspecified organism (2) Urinary tract infection: Urinary tract infection type: site unspecified Hematuria presence: with hematuria Qualified Codes: N39.0 - Urinary tract infection, site not specified; R31.9 - Hematuria, unspecified MILES HUSAIN Dec 02, 2019 11:32 EDEN WHITEHEAD DO Dec 02, 2019 21:00
[2019-12-02] MEDS: cefTRIAXone 1,000 MG/SWFI 10 ML IV PUSH IV SCH ×2 (11:55)
--- NOTE | 2019-12-02 11:56 | NUR ---
PER, DR. WHITEHEAD GIVE IV CEFTRIAXONE EARLY AND DISCHARGE
== END 2019-12-02 12:28 | disposition home or self-care (01) | DRG 872 ==
LOC: EDUNIT# 18:04 → ER 18:05 → 4TH 19:09 → OBSVTOIN 12-01 09:46
PROVIDERS: ADMIT Internal Medicine; ATTEND Internal Medicine
DX: A41.51 Sepsis due to Escherichia coli [E. coli] (principal); N12 Tubulo-interstitial nephritis, not specified as acute or chronic; K59.00 Constipation, unspecified; R73.9 Hyperglycemia, unspecified
CPT/HCPCS: 36415; 71045; 80053; 81000; 83605; 84703; 85007; 85025; 85027; 86141; 87040; 87077; 87088; 87186; G0378

== ENCOUNTER 2021-08-30 20:29 | Emergency (ER) | payer BC, OTHER ==
[~2021-08-30] VITALS: Ht 160 cm; Wt 83.9 kg
[~2021-08-30 20:29] MED LIST changes: +ACET325C7 PO; +CEFD300C3 PO
[2021-08-30 20:36] VITALS: BP 132/88
--- NOTE | 2021-08-30 20:52 | ED GU-Female ---
General Chief Complaint: OB < 20 WEEKS Stated Complaint: VAGINAL BLEEDING Nursing Triage Note: pt ambulatory to room. pt states she has had several positive tests. pt states her last normal period was July 10 and has been spotting since August 10. pt states she has no pain, and she states her bleeding has not gotten any worse Source: patient History of Present Illness Date Seen by Provider: Aug 30, 2021 Time Seen by Provider: 20:43 Initial Comments PT ARRIVES VIA POV FROM HOME PT STATES SHE IS AND HAS BEEN SPOTTING PT HAD NORMAL PERIOD 07/10/21. NO CONTROL PT BEGAN SPOTTING ON 08/10 AND HAS CONTINUED--PT HAS NOT USED ANY PADS OR TAMPONS AT ANY TIME--JUST BLOOD ON TISSUE WHEN SHE WIPES, AND NO CLOTS NO ABDOMINAL OR PELVIC PAIN HAS HAD OCCASIONAL VERY SLIGHT NAUSEA, NO VOMITING NO FEVER NO URINARY SYMPTOMS NO VAGINAL DISCHARGE OTHER THAN THE BLEEDING PT HAS HAD 2 POSITIVE HOME TESTS SINCE 08/21/21 WENT TO SEE JULIAN GOMEZ AT DR. MANCERA'S OFFICE ON 08/23/21 AND HAD A LAB DRAW FOR BETA HCG--PT REPORTS IT WAS 8300. PT REPORTS THAT NO OTHER TESTS WERE DONE, NO FOLLOW UP APPOINTMENT MADE OR REFERRAL TO OB PT HAS NOT MADE ANY ATTEMPT TO MAKE AN APPOINTMENT OR EVEN LOOK FOR AN OBST ETRICIAN AT ANY TIME PT HAS NEVER HAD A SCADA TECHNICIAN/PELVIC EXAM IN HER LIFE. PT DENIES EVER HAVING ANY SCADA TECHNICIAN OR OR GI PROBLEMS. PT IS AB 0 PT STATES THAT HER SYMPTOMS ARE NO DIFFERENT TONIGHT IN ANY WAY PCP: DR. WILKINSON AT [facility]. PT WORKS AT [employer] --HAS NOT ATTEMPTED TO CONTACT DR. WILKINSON OR ANYONE FOR THIS PROBLEM Allergies and Home Medications Allergies Coded Allergies: No Known Drug Allergies (Unverified , 08/06/11) Patient Home Medication List Home Medication List Reviewed: Yes Acetaminophen (Tylenol) 325 Mg Capsule, 650 MG PO BID PRN for PAIN-MILD (1-4), (Reported) Entered as Reported by: CHERELLE EL on 11/30/19 1018 Cefdinir (Cefdinir) 300 Mg Capsule, 300 MG PO BID Prescribed by: PEDRO WHITEHEAD on 12/02/19 1128 Clindamycin HCl (Cleocin) 100 Mg Supp, 100 MG VG HS Prescribed by: CHELSEA BRITO on 08/30/212205 Last Action: New Order Vit W-Ca,Fe,FA(<1 mg) ( Formula) 28 Mg Iron-800 Mcg Tablet, 1 EACH PO DAILY Prescribed by: CHELSEA BRITO on 08/30/212205 Last Action: New Order Review of Systems Review of Systems Constitutional: no symptoms reported; No fever Respiratory: no symptoms reported; No short of breath Cardiovascular: no symptoms reported; No chest pain Gastrointestinal: see HPI; No abdominal pain, No diarrhea; nausea; No vomiting Genitourinary: see HPI; denies dysuria : Yes LMP: Jul 10, 2021 Musculoskeletal: no symptoms reported; No back pain Skin: no symptoms reported Psychiatric/Neurological: No Symptoms Reported Endocrine: No Symptoms Reported Hematologic/Lymphatic: No Symptoms Reported Past Fwimzex-Nzbgkn-Ihmjss Hx Patient Social History Tobacco Use?: No Smoking Status: Never a Smoker Use of E-Cig and/or Vaping Rocco: Never a User Substance use?: No Alcohol Use?: No Immunizations Up To Date Tetanus Booster (TDap): Less than 5yrs PED Vaccines UTD: Yes Seasonal Allergies Seasonal Allergies: No Past Medical History Surgeries: No Respiratory: No Cardiac: No Neurological: No : No Last Menstrual Period: Jul 10, 2021 Genitourinary: Yes (HOSPITALIZED ONE TIME FOR UTI) Gastrointestinal: No Musculoskeletal: No Endocrine: No HEENT: Yes (HAD PERITONSILLAR ABSCESS. NO SURGERY. ) Cancer: No Psychosocial: No Integumentary: No Physical Exam Vital Signs Vital Signs - First Documented 08/30/21 20:36 Temp 36.8 Pulse 91 Resp 20 B/P (MAP) 132/88 (103) Pulse Ox 99 Capillary Refill : Height, Weight, BMI Height: 5'3" Weight: 120lbs. oz. 54.836745tt; 32.00 BMI Method:Estimated General Appearance: WD/WN, no apparent distress Cardiovascular: regular rate, rhythm, no murmur Respiratory: normal breath sounds Gastrointestinal: non tender, soft, no organomegaly Pelvic: normal external exam, normal adnexa, no cerv. motion tender, no masses; No discharge, No lesions, No mass, No tender w/ cervical motion, No tender adne xa, No tender uterus; vaginal bleeding (VERY TINY AMOUNT OF THIN /WATERY BLOOD TINGED MUCOUS. NO CLOTS. CERVIX CLOSED AND NORMAL IN APPEARANCE) Back: normal inspection, no CVA tenderness Extremities: normal inspection, no pedal edema, normal capillary refill Neurologic/Psychiatric: antique repairer II-XII nml as tested, no motor/sensory deficits, alert, normal mood/affect, oriented x 3 Skin: normal color (DARK SKINNED), warm/dry; No rash Progress/Results/Core Measures Suspected Sepsis SIRS Temperature: Pulse: 91 Respiratory Rate: 20 Laboratory Tests 08/30/21 21:20: White Blood Count 9.3 Blood Pressure 132 /88 Mean: 103 Laboratory Tests 08/30/21 21:20: Platelet Count 210 Results/Orders Lab Results Laboratory Tests Test 08/30/21 20:55 08/30/21 21:20 08/30/21 21:35 Range/Units Urine Color YELLOW Urine Clarity CLEAR Urine pH 7.0 5-9 Urine Specific Elkins 1.015 L 1.016-1.022 Urine Protein NEGATIVE NEGATIVE Urine Glucose (UA) NEGATIVE NEGATIVE Urine Ketones NEGATIVE NEGATIVE Urine Nitrite NEGATIVE NEGATIVE Urine Bilirubin NEGATIVE NEGATIVE Urine Urobilinogen 0.2 < = 1.0 MG/DL Urine Leukocyte Esterase NEGATIVE NEGATIVE Urine RBC (Auto) 2+ H NEGATIVE Urine RBC 0-2 /HPF Urine WBC 0-2 /HPF Urine Squamous Epithelial Cells 2-5 /HPF Urine Renal Epithelial Cells NONE /HPF Urine Crystals NONE /LPF Urine Bacteria NEGATIVE /HPF Urine Casts NONE /LPF Urine Mucus NEGATIVE /LPF Urine Culture Indicated NO Urine Opiates Screen NEGATIVE NEGATIVE Urine Oxycodone Screen NEGATIVE NEGATIVE Urine Methadone Screen NEGATIVE NEGATIVE Urine Propoxyphene Screen NEGATIVE NEGATIVE Urine Barbiturates Screen NEGATIVE NEGATIVE Ur Tricyclic Antidepressants Screen NEGATIVE NEGATIVE Urine Phencyclidine Screen NEGATIVE NEGATIVE Urine Amphetamines Screen NEGATIVE NEGATIVE Urine Methamphetamines Screen NEGATIVE NEGATIVE Urine Benzodiazepines Screen NEGATIVE NEGATIVE Urine Cocaine Screen NEGATIVE NEGATIVE Urine Cannabinoids Screen NEGATIVE NEGATIVE White Blood Count 9.3 4.3-11.0 10^3/uL Red Blood Count 4.43 3.80-5.11 10^6/uL Hemoglobin 13.3 11.5-16.0 g/dL Hematocrit 40 35-52 % Mean Corpuscular Volume 91 80-99 fL Mean Corpuscular Hemoglobin 30 25-34 pg Mean Corpuscular Hemoglobin Concent 33 32-36 g/dL Red Cell Distribution Width 13.0 10.0-14.5 % Platelet Count 210 130-400 10^3/uL Mean Platelet Volume 11.0 9.0-12.2 fL Human Chorionic Gonadotropin, Quant 4834 H <5 MIU/ML My Orders Orders - CHELSEA BRITO DO Cbc No Diff (08/30/21 20:43) Drug Screen Stat (Urine) (08/30/21 20:43) Hcg,Quantitative (08/30/21 20:43) Ua Culture If Indicated (08/30/21 20:43) Abo Rh Type (08/30/21 20:43) Neisseria Gonorrhea Swab (08/30/21 21:36) Chlam Dna Probe (08/30/21 21:36) Genital Culture (08/30/21 21:36) Wet Prep (08/30/21 21:36) Yvette Prep (08/30/21 21:36) Vital Signs/I&O 08/30/21 20:36 Temp 36.8 Pulse 91 Resp 20 B/P (MAP) 132/88 (103) Pulse Ox 99 Capillary Refill : Blood Pressure Mean: 103 Progress Note : Progress Note DID NOT USE ANY PADS DURING ER STAY OR HAVE ANY SIGNIFICANT BLEEDING--DID NOT USE ANY PADS OR HAVE BLOOD ON HER UNDERWEAR OR CLOTHING. , AND NO PAIN DURING ER STAY BLOOD TYPE O+ WET PREP--+ CLUE CELLS DISCUSSED LAB RESULTS, AND ANTICIPATED COURSE DISCUSSED THAT WITH FALLING HORMONE LEVELS ( BASED ON BETA HCG LEVEL OF 8300, REPORTED TO MY BY THE PATIENT ON A TEST DONE ON 12/23/21 BY RN TRAUMA YOGESH Gomez) THAT IS WAS LIKELY THAT SHE WAS HAVING A MISCARRIAGE. ADVISED IMPORTANCE OF FOLLOW UP THIS WEEK WITH MARKETING REP OR HER PCP DR. WILKINSON OR WITH RN TRAUMA YOGESH GOMEZ FOR FURTHER CARE. Departure Impression Primary Impression: Threatened in early Additional Impression: Bacterial vaginosis in Disposition: 01 HOME, SELF-CARE Condition: Stable Departure-Patient Inst. Decision time for Depature: 21:53 Referrals: [facility] (PCP/Family) Primary Care Physician Patient Instructions: Bleeding in Early ED, Threatened Miscarriage (DC), Bacterial Vaginosis Add. Discharge Instructions: NOTHING IN VAGINA--NO TAMPONS, DOUCHING OR INTERCOURSE KEEP AN ACCURATE PAD COUNT--RETURN IF SOAKING MORE THAN 1 MAXI PAD AN HOUR. LOTS OF CLEAR LIQUIDS TYLENOL NEEDED IF YOU HAVE PAIN CALL IN THE MORNING TO ESTABLISH CARE WITH MISSILE TRACKING TECHNICIAN OF CHOICE All discharge instructions reviewed with patient and/or family. Voiced understanding. Scripts Clindamycin HCl (Cleocin) 100 Mg Supp 100 MG VG HS for 7 Days, #7 SUPP Prov: CHELSEA BRITO DO 08/30/21 Vit W-Ca,Fe,FA(<1 mg) ( Formula) 28 Mg Iron-800 Mcg Tablet 1 EACH PO DAILY, #90 TAB Prov: CHELSEA BRITO DO 08/30/21 CHELSEA BRITO DO Aug 30, 2021 20:52
[2021-08-30 21:13] LABS: BILIRUBIN,URINE NEGATIVE (NEGATIVE); CLARITY,URINE CLEAR; COLOR,URINE YELLOW; GLUCOSE, URINE (UA) NEGATIVE (NEGATIVE); KETONES,URINE NEGATIVE (NEGATIVE); LEUKOCYTE ESTERASE ,URINE NEGATIVE (NEGATIVE); NITRITE,URINE NEGATIVE (NEGATIVE); PROTEIN,URINE NEGATIVE (NEGATIVE)
[2021-08-30 21:19] LABS: BACTERIA,URINE NEGATIVE /HPF; RBC,URINE 0-2 /HPF; WBC,URINE 0-2 /HPF
[2021-08-30 21:25] LABS: AMPHETAMINE SCREEN, URINE NEGATIVE (NEGATIVE); BARBITURATE SCREEN URINE NEGATIVE (NEGATIVE); BENZODIAZEPINES SCREEN URINE NEGATIVE (NEGATIVE); CANNABINOID SCREEN, URINE NEGATIVE (NEGATIVE); COCAINE SCREEN URINE NEGATIVE (NEGATIVE); METHADONE STAT NEGATIVE (NEGATIVE); METHAMPHETAMINE SCREEN URINE S NEGATIVE (NEGATIVE); OPIATE SCREEN URINE NEGATIVE (NEGATIVE); OXYCODONE STAT NEGATIVE (NEGATIVE); PROPOXYPHENE STAT NEGATIVE (NEGATIVE); TRICYCLIC ANTIDEPRESSANTS SCRE NEGATIVE (NEGATIVE)
[2021-08-30 21:28] LABS: HEMATOCRIT 40 % (35-52); HEMOGLOBIN 13.3 g/dL (11.5-16.0); MEAN CORPUSCULAR HEMOGLOBIN 30 pg (25-34); MEAN CORPUSCULAR HGB CONC 33 g/dL (32-36); MEAN CORPUSCULAR VOLUME 91 fL (80-99); PLATELET COUNT 210 10^3/uL (130-400); WHITE BLOOD COUNT 9.3 10^3/uL (4.3-11.0)
[2021-08-30] MEDS ORDERED: NF-CLINOV VG ×2 (21:57→22:06)
[2021-08-30] MEDS ORDERED: PREN-8 PO ×2 (21:57→22:06)
== END 2021-08-30 22:15 | disposition home or self-care (01) ==
LOC: EDUNIT# 20:29 → ER 20:31
DX: O20.0 Threatened abortion (principal); O23.599 Infection of other part of genital tract in pregnancy, unspecified trimester; Z3A.00 Weeks of gestation of pregnancy not specified
CPT/HCPCS: 36415; 80306; 81000; 84702; 85027; 86900; 86901; 87070; 87205; 87210; 87220; 87491; 87591; 99284

== ENCOUNTER 2021-09-01 15:44 | Day surgery (SDC) | payer OTHER ==
[~2021-09-01] VITALS: Ht 160 cm; Wt 83.9 kg
[2021-09-01] VITALS (11 sets, daily range): BP systolic 112–138; BP diastolic 57–81
[~2021-09-01 15:44] MED LIST changes: -ACET-93 PO; -DOCU100C37 PO; -IBUP-844 PO; -ONDA4TAB11 PO; -OXC5T PO
[2021-09-01] MEDS ORDERED: NS IV 1000 ML 1,000 ML IV SCH (16:00)
--- NOTE | 2021-09-01 16:03 | ED GU-Female ---
General Chief Complaint: OB < 20 WEEKS Stated Complaint: ECTOPIC Nursing Triage Note: PT AMBULATE TO ROOM 04 FROM OUTPATIENT ULTRASOUND FOR AN ECTOPIC . Source: patient Exam Limitations: no limitations History of Present Illness Date Seen by Provider: Sep 01, 2021 Time Seen by Provider: 16:00 Initial Comments Patient is a 26-year-old female who presents to the emergency department today with a chief complaint of ectopic . Her last normal menstrual cycle was July 10. She started having vaginal spotting around August 10 which was intermittent and occasionally had heavier bleeding. She has been seen by Chapis العراقي who is the nurse practitioner for Dr. LOZOYA for this she has done serial hCGs which have not been elevating normally. Her last hCG was done on August 30 and was around 4000. Patient adamantly denies any abdominal pain. No nausea or vomiting, no burning with urination. No fevers or chills. She is a G1, P0, no prior pregnancies. She is not on any control. Negative past medical history. The cable television technician was performing an outpatient pelvic ultrasound and noted the ectopic , came over and alerted me to it and then the patient was brought to the emergency department. Vital signs are stable. Will obtain basic labs with a repeat hCG and talk with Dr. Devine who is on for MUSEUM ARCHIVIST. All other review of systems reviewed and negative except as stated. Timing/Duration: getting worse, intermittent Prior Genitourinary Problems: none Sexual [place] History: single partner Associated Symptoms: denies symptoms Allergies and Home Medications Allergies Coded Allergies: No Known Drug Allergies (Unverified , 08/06/11) Patient Home Medication List Home Medication List Reviewed: Yes Acetaminophen (Tylenol) 325 Mg Capsule, 650 MG PO BID PRN for PAIN-MILD (1-4), (Reported) Entered as Reported by: CHERLELE EL on 11/30/19 1018 Cefdinir (Cefdinir) 300 Mg Capsule, 300 MG PO BID Prescribed by: PEDRO WHITEHEAD on 12/02/19 112 Clindamycin HCl (Cleocin) 100 Mg Supp, 100 MG VG HS Prescribed by: CHELSEA BRITO on 08/30/212205 Vit W-Ca,Fe,FA(<1 mg) ( Formula) 28 Mg Iron-800 Mcg Tablet, 1 EACH PO DAILY Prescribed by: CHELSEA BRITO on 08/30/212205 Review of Systems Review of Systems Constitutional: see HPI EENTM: no symptoms reported Respiratory: no symptoms reported Cardiovascular: no symptoms reported Gastrointestinal: no symptoms reported Genitourinary: other (Vaginal bleeding) : Yes LMP: Jul 10, 2021 Musculoskeletal: no symptoms reported Skin: no symptoms reported Psychiatric/Neurological: No Symptoms Reported All Other Systemes Reviewed Negative Unless Noted: Yes Past Zxakivi-Owmluc-Hnefbz Hx Patient Social History Tobacco Use?: No Smoking Status: Never a Smoker Smokeless Tobacco Frequency: Light User, Never a User Use of E-Cig and/or Vaping dev: No Use of E-Cig and/or Vaping Rocco: Never a User Substance use?: No Alcohol Use?: No Pt feels they are or have been: No Immunizations Up To Date Tetanus Booster (TDap): Less than 5yrs PED Vaccines UTD: Yes 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 NO SURGERY. ) Cancer: No Psychosocial: No Integumentary: No Physical Exam Vital Signs Vital Signs - First Documented 09/01/21 09/01/21 15:52 20:15 Temp 36.6 Pulse 86 Resp 16 B/P (MAP) 133/90 (104) Pulse Ox 99 O2 Delivery Room Air O2 Flow Rate 6 Capillary Refill : Less Than 3 Seconds Height, Weight, BMI Height: 5'3" Weight: 120lbs. oz. 54.560018eq; 32.00 BMI Method:Estimated General Appearance: WD/WN, no apparent distress HEENT: PERRL/EOMI Neck: full range of motion, supple, normal inspection Cardiovascular: regular rate, rhythm Respiratory: lungs clear, normal breath sounds, no respiratory distress, no accessory muscle use Gastrointestinal: normal bowel sounds, non tender, soft Pelvic: other (deferred) Extremities: normal range of motion, non-tender, normal inspection, no pedal edema, no calf tenderness Neurologic/Psychiatric: alert, normal mood/affect, oriented x 3 Skin: normal color, warm/dry Progress/Results/Core Measures Suspected Sepsis SIRS Temperature: Pulse: 86 Respiratory Rate: 16 Laboratory Tests 09/01/21 16:08: White Blood Count 9.4 09/02/21 05:15: White Blood Count 10.7 Blood Pressure 133 /90 Mean: 104 Laboratory Tests 09/01/21 16:08: Creatinine 0.73, Platelet Count 225 09/02/21 05:15: Platelet Count 197 Results/Orders Lab Results Laboratory Tests Test 09/01/21 16:08 09/02/21 05:15 Range/Units White Blood Count 9.4 10.7 4.3-11.0 10^3/uL Red Blood Count 4.46 4.16 3.80-5.11 10^6/uL Hemoglobin 13.5 12.6 11.5-16.0 g/dL Hematocrit 41 38 35-52 % Mean Corpuscular Volume 91 91 80-99 fL Mean Corpuscular Hemoglobin 30 30 25-34 pg Mean Corpuscular Hemoglobin Concent 33 33 32-36 g/dL Red Cell Distribution Width 13.1 12.8 10.0-14.5 % Platelet Count 225 197 130-400 10^3/uL Mean Platelet Volume 10.7 10.8 9.0-12.2 fL Immature Granulocyte % (Auto) 1 1 % Neutrophils (%) (Auto) 63 89 H 42-75 % Lymphocytes (%) (Auto) 25 9 L 12-44 % Monocytes (%) (Auto) 9 2 0-12 % Eosinophils (%) (Auto) 2 0 0-10 % Basophils (%) (Auto) 0 0 0-10 % Neutrophils # (Auto) 5.9 9.6 H 1.8-7.8 10^3/uL Lymphocytes # (Auto) 2.3 1.0 1.0-4.0 10^3/uL Monocytes # (Auto) 0.8 0.2 0.0-1.0 10^3/uL Eosinophils # (Auto) 0.2 0.0 0.0-0.3 10^3/uL Basophils # (Auto) 0.0 0.0 0.0-0.1 10^3/uL Immature Granulocyte # (Auto) 0.1 0.1 0.0-0.1 10^3/uL Sodium Level 137 135-145 MMOL/L Potassium Level 3.5 L 3.6-5.0 MMOL/L Chloride Level 106 98-107 MMOL/L Carbon Dioxide Level 19 L 21-32 MMOL/L Anion Gap 12 5-14 MMOL/L Blood Urea Nitrogen 8 7-18 MG/DL Creatinine 0.73 0.60-1.30 MG/DL Estimat Glomerular Filtration Rate 117 BUN/Creatinine Ratio 11 Glucose Level 102 70-105 MG/DL Calcium Level 9.1 8.5-10.1 MG/DL Human Chorionic Gonadotropin, Quant 7655 H <5 MIU/ML My Orders Orders - PETRA CORONEL MD Ed Iv/Invasive Line Start (09/01/21 15:48) Cbc With Automated Diff (09/01/21 15:48) Basic Metabolic Panel (09/01/21 15:48) Ns Iv 1000 Ml (Sodium Chloride 0.9%) (09/01/21 16:00) Hcg,Quantitative (09/01/21 16:39) Vital Signs/I&O 09/01/21 09/01/21 09/01/21 09/01/21 20:15 20:15 20:20 20:30 Temp 37.1 Resp 20 18 B/P (MAP) 138/78 (98) 125/78 (94) Pulse Ox 99 100 O2 Delivery OxyMask OxyMask OxyMask OxyMask O2 Flow Rate 6 6 3 2 09/01/21 09/01/21 09/01/21 09/01/21 20:30 20:40 20:45 20:50 Resp 16 16 18 B/P (MAP) 123/81 (95) 121/78 (92) 120/74 (89) Pulse Ox 99 99 99 O2 Delivery OxyMask OxyMask OxyMask Room Air O2 Flow Rate 2 2 2 09/01/21 09/01/21 09/01/21 09/01/21 21:00 21:00 21:10 21:15 Temp 36.4 Resp 20 16 B/P (MAP) 122/69 (86) 115/74 (88) Pulse Ox 98 97 O2 Delivery Room Air Room Air Room Air Room Air 09/01/21 09/01/21 09/01/21 09/01/21 21:35 22:05 22:30 23:00 Temp 36.6 36.1 36.1 36.9 Pulse 84 88 90 94 Resp 16 16 16 16 B/P (MAP) 112/57 (75) 120/66 (84) 118/64 (82) 125/64 (84) Pulse Ox 98 97 97 97 O2 Delivery Room Air Room Air Room Air Room Air 09/01/21 09/02/21 09/02/21 23:07 01:40 04:10 Temp 36.6 36.2 Pulse 95 82 Resp 16 16 B/P (MAP) 107/58 (74) 113/58 (76) Pulse Ox 98 98 O2 Delivery Room Air Room Air Room Air 09/02/21 00:00 Intake Total 1000 ml Balance 1000 ml Capillary Refill : Less Than 3 Seconds Blood Pressure Mean: 104 Progress Note #1: Time: 16:16 Progress Note discussed with Dr Devine Progress Note #2: Time: 17:[address] Devine came down to the emergency department, reviewed patient's labs as well as imaging studies. Will take to the operating room, likely removing the left o vary. Diagnostic Imaging Diagonstic Imaging: Ultrasound Comments [facility], [place] NAME: [facility] REC#: [id number] PT STATUS: REG CLI : 1995 PHYSICIAN: JEROME LOZOYA MD ADMIT DATE: 09/01/21/RAD Signed Date of Exam:09/01/21 US OB<14 WKS SNGLE W/TRANSVAG TECHNIQUE: Live grayscale and color Doppler ultrasound was performed of the pelvis, transabdominally and endovaginally. REASON FOR EXAM: . Vaginal bleeding. COMPARISON: None. FINDINGS: No intrauterine gestation is visualized. The uterus measures 7.2 x 3.9 x 5.0 cm. The endometrial stripe measures 1.0 cm in thickness and has a normal appearance. No focal uterine mass. A live ectopic is seen within the left ovary with a crown-rump length of 0.4 cm, consistent with a 6 week 1 day gestation. heart tones are present and measure 133 bpm. No associated torsion is seen in the left ovary. The right ovary is unremarkable. No free fluid is seen in the pelvis. IMPRESSION: Ectopic within the left ovary. No associated torsion or evidence of free fluid in the pelvis. Preliminary results were given to Dr. Lozoya immediately following the exam, by the assessment manager. Dictated by: Dictated on workstation # [id number] Dict: 09/01/21 1607 Trans: 09/01/[address] [facility] [id number] Interpreted by: CYNDI CHAVARRIA DO Electronically signed by: CYNDI CHAVARRIA DO 09/01/21 1636 Departure Communication (Admissions) Time/Spoke to Admitting Phy: 16:[address] Devine Impression Primary Impression: Ectopic of left ovary Disposition: ADMITTED INPATIENT Condition: Stable Admissions Decision to Admit Reason: Admit from ER (General) Decision to Admit/Date: Sep 01, 2021 Time/Decision to Admit Time: 17:00 Departure-Patient Inst. Referrals: [facility] (PCP/Family) Primary Care Physician PETRA CORONEL MD Sep 01, 2021 16:03
[2021-09-01 16:21] LABS: BASOPHILS % (AUTO) 0 % (0-10); EOSINOPHILS # (AUTO) 0.2 10^3/uL (0.0-0.3); EOSINOPHILS % (AUTO) 2 % (0-10); HEMATOCRIT 41 % (35-52); HEMOGLOBIN 13.5 g/dL (11.5-16.0); LYMPHOCYTES # (AUTO) 2.3 X 10^3 (1.0-4.0); LYMPHOCYTES % (AUTO) 25 % (12-44); MEAN CORPUSCULAR HEMOGLOBIN 30 pg (25-34); MEAN CORPUSCULAR HGB CONC 33 g/dL (32-36); MEAN CORPUSCULAR VOLUME 91 fL (80-99); MEAN PLATELET VOLUME 10.7 fL (9.0-12.2); MONOCYTES # (AUTO) 0.8 X 10^3 (0.0-1.0); MONOCYTES % (AUTO) 9 % (0-12); NEUTROPHILS # (AUTO) 5.9 X 10^3 (1.8-7.8); NEUTROPHILS % (AUTO) 63 % (42-75); PLATELET COUNT 225 10^3/uL (130-400); WHITE BLOOD COUNT 9.4 10^3/uL (4.3-11.0)
[2021-09-01 16:35] LABS: CALCIUM 9.1 MG/DL (8.5-10.1); CREATININE SERUM 0.73 MG/DL (0.60-1.30); POTASSIUM 3.5 MMOL/L (3.6-5.0)
[2021-09-01] MEDS ORDERED: ONDANSETRON 4 MG/2 ML (SDV) Z0FRAN ONE (18:32)
[2021-09-01] MEDS ORDERED: proPOfol 200 MG/20 ML (DIPRIVAN) VIAL IV ONE (18:32)
[2021-09-01] MEDS ORDERED: LIDOCAINE PF 2% 5 ML (XYLOCAINE) VIAL ONE (18:32)
[2021-09-01] MEDS ORDERED: SUCCINYLCHOLINE INJ 100 MG/5 ML SYR/VIAL ONE (18:32)
[2021-09-01] MEDS ORDERED: fentaNYL INJ 100 MCG/2 ML AMP ONE (18:32)
[2021-09-01] MEDS ORDERED: ROCURONIUM 50 MG/5 ML (ZEMURON) VIAL IV ONE (18:32)
[2021-09-01] MEDS ORDERED: KETOROLAC 30 MG/ML VIAL ONE (18:32)
[2021-09-01] MEDS ORDERED: MIDAZOLAM 2 MG/2 ML (VERSED) VIAL ONE (18:33)
[2021-09-01] MEDS ORDERED: BUPIVACAINE 0.5% 30 ML (SENSORCAINE) VIAL ONE (18:37)
--- NOTE | 2021-09-01 18:42 | History & Physical-OB/GYN ---
History of Present Illness History of Present Illness Reason for visit/HPI Laurita Mederos is a 26 yo who presents today with an ectopic at 6w1d. She states that she has experienced on and of vaginal bleeding since August 10. She figured at that time that she may have been experiencing her period initially; however, due to continuous bleeding and new onset breast tenderness, she decided to take a test and was found to be positive on August 21 and . She went to her provider, Dr. Lozoya, who repeated her test in office and scheduled her for an US today. Pelvic US demonstrated an ectopic in the left ovary with heart tones present at 133 bpm and crown-rump length of 0.4cm. There was no concerns for torsion or rupture of the ectopic. No evidence of an IUP. She was guided to the ED for further assessment. In the ED, beta HCG level is 7655. She denies abnormal pain today, nausea, vomiting, diarrhea and constipation and is asymptomatic. Date of Admission 09/01/2021 Date Seen by a Provider: Sep 01, 2021 Time Seen by a Provider: 18:35 I consulted on this patient on 09/01/21 18:35 Attending Physician Davis Devine MD Admitting Physician Dr. Davis Devine Consult Allergies and Home Medications Allergies Coded Allergies: No Known Drug Allergies (Unverified , 08/06/11) Patient Home Medication List Home Medication List Reviewed: Yes Acetaminophen (Tylenol) 325 Mg Capsule, 650 MG PO BID PRN for PAIN-MILD (1-4), (Reported) Entered as Reported by: CHERELLE EL on 11/30/19 1018 Cefdinir (Cefdinir) 300 Mg Capsule, 300 MG PO BID Prescribed by: PEDRO WHITEHEAD on 12/02/19 1128 Clindamycin HCl (Cleocin) 100 Mg Supp, 100 MG VG HS Prescribed by: CHELSEA BRITO on 08/30/212205 Vit W-Ca,Fe,FA(<1 mg) ( Formula) 28 Mg Iron-800 Mcg Tablet, 1 EACH PO DAILY Prescribed by: CHELSEA BRITO on 08/30/212205 Past Apgyxkf-Zhknqd-Rxrlbf Hx Patient Social History Marrital Status: single Employed/Student: employed Smoking Status: Never a Smoker Have you traveled recently?: No Alcohol Use?: No Pt feels they are or have been: No Immunizations Up To Date Tetanus Booster (TDap): Less than 5yrs Pediatric: Yes Seasonal Allergies Seasonal Allergies: No Surgeries No Respiratory No Cardiovascular No Neurological No Genitourinary Yes (HOSPITALIZED ONE TIME FOR UTI) Gastrointestinal No Musculoskeletal No Endocrine History of Endocrine Disorders: No HEENT History of HEENT Disorders: Yes (HAD PERITONSILLAR ABSCESS. NO SURGERY. ) Cancer No Psychosocial History of Psychiatric Problem: No Integumentary History of Skin or Integumenta: No Review of Systems Constitutional: no symptoms reported Physical Exam Physical Exam Vital Signs Vital Signs Date Time Temp Pulse Resp B/P (MAP) Pulse Ox O2 Delivery O2 Flow Rate FiO2 09/01/21 15:52 36.6 86 16 133/90 (104) Room Air Capillary Refill : Less Than 3 Seconds Labs Laboratory Tests 09/01/21 16:08: White Blood Count 9.4, Red Blood Count 4.46, Hemoglobin 13.5, Hematocrit 41, Mean Corpuscular Volume 91, Mean Corpuscular Hemoglobin 30, Mean Corpuscular Hemoglobin Concent 33, Red Cell Distribution Width 13.1, Platelet Count 225, Mean Platelet Volume 10.7, Immature Granulocyte % (Auto) 1, Neutrophils (%) (Auto) 63, Lymphocytes (%) (Auto) 25, Monocytes (%) (Auto) 9, Eosinophils (%) (Auto) 2, Basophils (%) (Auto) 0, Neutrophils # (Auto) 5.9, Lymphocytes # (Auto) 2.3, Monocytes # (Auto) 0.8, Eosinophils # (Auto) 0.2, Basophils # (Auto) 0.0, Immature Granulocyte # (Auto) 0.1, Sodium Level 137, Potassium Level 3.5L, Chloride Level 106, Carbon Dioxide Level 19L, Anion Gap 12, Blood Urea Nitrogen 8, Creatinine 0.73, Estimat Glomerular Filtration Rate 117, BUN/Creatinine Ratio 11, Glucose Level 102, Calcium Level 9.1, Human Chorionic Gonadotropin, Quant 7655H General Appearance: No Apparent Distress Respiratory: Chest Non Tender, Lungs Clear, Normal Breath Sounds Cardiovascular: Regular Rate, Rhythm Abdominal: normal bowel sounds, non tender, soft, no organomegaly, no pulsatile mass Assessment/Plan Assessment and Plan O: VS - Last 72 Hours, by Label 09/01/21 15:52 Temp 36.6 Pulse 86 Resp 16 B/P (MAP) 133/90 (104) O2 Delivery Room Air Laboratory Tests Test 09/01/21 16:08 Range/Units White Blood Count 9.4 4.3-11.0 10^3/uL Red Blood Count 4.46 3.80-5.11 10^6/uL Hemoglobin 13.5 11.5-16.0 g/dL Hematocrit 41 35-52 % Mean Corpuscular Volume 91 80-99 fL Mean Corpuscular Hemoglobin 30 25-34 pg Mean Corpuscular Hemoglobin Concent 33 32-36 g/dL Red Cell Distribution Width 13.1 10.0-14.5 % Platelet Count 225 130-400 10^3/uL Mean Platelet Volume 10.7 9.0-12.2 fL Immature Granulocyte % (Auto) 1 % Neutrophils (%) (Auto) 63 42-75 % Lymphocytes (%) (Auto) 25 12-44 % Monocytes (%) (Auto) 9 0-12 % Eosinophils (%) (Auto) 2 0-10 % Basophils (%) (Auto) 0 0-10 % Neutrophils # (Auto) 5.9 1.8-7.8 X 10^3 Lymphocytes # (Auto) 2.3 1.0-4.0 X 10^3 Monocytes # (Auto) 0.8 0.0-1.0 X 10^3 Eosinophils # (Auto) 0.2 0.0-0.3 10^3/uL Basophils # (Auto) 0.0 0.0-0.1 10^3/uL Immature Granulocyte # (Auto) 0.1 0.0-0.1 10^3/uL Sodium Level 137 135-145 MMOL/L Potassium Level 3.5 L 3.6-5.0 MMOL/L Chloride Level 106 98-107 MMOL/L Carbon Dioxide Level 19 L 21-32 MMOL/L Anion Gap 12 5-14 MMOL/L Blood Urea Nitrogen 8 7-18 MG/DL Creatinine 0.73 0.60-1.30 MG/DL Estimat Glomerular Filtration Rate 117 BUN/Creatinine Ratio 11 Glucose Level 102 70-105 MG/DL Calcium Level 9.1 8.5-10.1 MG/DL Human Chorionic Gonadotropin, Quant 7655 H <5 MIU/ML A/P: Laurita Perez Santos is a 26 yo with a left ovarian ectopic , evidenced on pelvic US. Given that the ectopic has an active heart beat with an elevated beta HCG of 7655, surgical management is indicated. # Preop: Will plan for exploratory laparoscopy, possible left salpingectomy, possible left oophorectomy, surgery as indicated. I reviewed the procedure extensively with the patient along with the associated risks of the procedure with includes bleeding, infection, and injury to surrounding structures. We discussed the risk of requiring a mini-laparotomy in the event of the presence of complications such as injury to surrounding structures, intra-abdominal placement of the ectopic or presence of a cornual ectopic . - Preop labs ordered. # Blood type: Patient is O+. RHOGAM is not indicated. # Pain Management: Anesthesia consulted. # Diet: NPO # DVT ppx: SCDs in place intraoperatively. # Dispo: Anticipate surgical management. Admission Diagnosis Ectopic without rupture Admission Status: Observation DAVIS DEVINE MD Sep 01, 2021 18:42
[2021-09-01] MEDS ORDERED: ceFAZolin INJECTION 2,000 MG ONE (19:15)
[2021-09-01] MEDS: LACTATED RINGERS 1,000 ML IV SCH ×2 (19:41→20:46)
[2021-09-01] MEDS ORDERED: SEVOFLURANE (ULTANE) 15 ML INHAL SOLN ONE (20:03)
[2021-09-01] MEDS ORDERED: METOCLOPRAMIDE INJ 10 MG/2 ML (REGLAN) IV PRN (20:15)
[2021-09-01] MEDS ORDERED: D5 LR IV SOLUTION 1,000 ML IV SCH (20:15)
[2021-09-01] MEDS ORDERED: NALOXONE 0.4 MG/ML 1 ML (NARCAN) VIAL IV PRN (20:15)
--- NOTE | 2021-09-01 20:29 | Laparoscopy Operative Note ---
Laparoscopy Procedure Note Laparoscopy Procedure Note Patient Name: Laurita Mederos Procedure Date: 09/01/21 Pre operative Diagnosis: Ectopic Post operative Diagnosis: Ectopic in the right fallopian tube Name of the Procedure: Diagnostic laparoscopy, right salpingectomy, removal of ectopic Surgeon: DAVIS DEVINE Printed Circuit Photographer: None Anesthesia: General Specimens: Right ectopic in the fimbria of the right fallopian tube. Normal appearing left fallopian tube and ovary. Right ovary appeared normal as well. Normal appearing retroverted uterus. EBL: 5 mL Complications: None Indication for the procedure: presenting with an ectopic that appears to be in the right ovary, requiring surgical management due to elevated beta hcg of >7500 and heart rate on pelvic US. Risks, benefits and alternatives to the procedure were discussed, and informed consent was obtained. Description of procedure: After all questions were answered and consents were signed, the patient was taken back to the OR where general anesthesia was administered and found to be adequate. The patient was placed in the dorsal lithotomy position in [facility]. She was then prepped and draped in normal sterile fashion. Attention was first turned to the perineum. A paulson catheter was placed into the bladder. A sterile speculum was then inserted into vagina and the cervix was visualized. A single-toothed tenaculum was used to grasp the anterior lip of the cervix and a coned uterine manipulator was then placed without difficulty. The tenaculum and speculum were removed from the vagina. Gloves were then changed and attention was turned to the patient's abdomen. A 10 mm infraumbilical incision was then made with the scalpel. A 10 mm OptiView port was then placed into the umbilicus without difficulty. Intra- abdominal survey was then performed with the findings as noted above. Trendelenberg position was obtained to facilitate pelvic exposure. An intra-abdominal survey revealed ectopic in the fimbrated end of the right fallopian tube. The liver, gallbladder, and spleen appeared normal. Two 5- mm trocars were inserted in the bilateral lower quadrants under direct laparoscopic visualization. The left fallopian tube/ovary and right ovary susan eared normal. The decision was made to proceed with right salpingectomy. The right fallopian tube was elevated away from pelvic sidewall with an atraumatic grasper. The fallopian tube proximal to the implantation site was clamped, coagulated, and transected with a 5-mm Ligasure device. The mesosalpinx was serially coagulated and cut. The tube and product of gestation were complet erasmo freed and placed in the anterior cul-de-sac for later retrieval. The 10-mm laparoscopy was withdrawn. An EndoCatch device was introduced through the umbilical trocar and advanced near the specimen under the direct vision of a 5-mm laparoscope, which was placed through the ancillary trocar. The specimen was placed in the bag and retrieved from the umbilical incision. The abdomen and pelvis was thoroughly inspected. Good hemostasis was noted at resection site. All instruments and ports were then removed under direct visualization. Carbon dioxide pneumoperitoneum was then released. The umbilical fascia was closed with 0-0 Vicryl suture. The skin incisions were closed with 1 4-0 polysorb and 2 4-0 monocryl sutures in a subcuticular fashion. The uterine manipulator was then removed, as well as the paulson catheter. Hemostasis was assured. Patient tolerated the procedure well. All sponge, lap, and needle counts were correct x 2. Patient was taken to the recovery room in stable condition. Dr. Davis Devine was scrubbed and present for the entire procedure. Vitals - Labs Vital Signs - I&O Vital Signs Date Time Temp Pulse Resp B/P (MAP) Pulse Ox O2 Delivery O2 Flow Rate FiO2 09/01/21 15:52 36.6 86 16 133/90 (104) Room Air Labs Laboratory Tests 09/01/21 16:08: White Blood Count 9.4, Red Blood Count 4.46, Hemoglobin 13.5, Hematocrit 41, Mean Corpuscular Volume 91, Mean Corpuscular Hemoglobin 30, Mean Corpuscular Hemoglobin Concent 33, Red Cell Distribution Width 13.1, Platelet Count 225, Mean Platelet Volume 10.7, Immature Granulocyte % (Auto) 1, Neutrophils (%) (Auto) 63, Lymphocytes (%) (Auto) 25, Monocytes (%) (Auto) 9, Eosinophils (%) (Auto) 2, Basophils (%) (Auto) 0, Neutrophils # (Auto) 5.9, Lymphocytes # (Auto) 2.3, Monocytes # (Auto) 0.8, Eosinophils # (Auto) 0.2, Basophils # (Auto) 0.0, Immature Granulocyte # (Auto) 0.1, Sodium Level 137, Potassium Level 3.5L, Chloride Level 106, Carbon Dioxide Level 19L, Anion Gap 12, Blood Urea Nitrogen 8, Creatinine 0.73, Estimat Glomerular Filtration Rate 117, BUN/Creatinine Ratio 11, Glucose Level 102, Calcium Level 9.1, Human Chorionic Gonadotropin, Quant 7655H DAVIS DEVINE MD Sep 01, 2021 20:29
[2021-09-01] MEDS ORDERED: morphine INJ 10 MG/ML 1ML (SYR OR VIAL) ONE (20:38)
[2021-09-01] MEDS ORDERED: LACTATED RINGERS 1,000 ML IV ONE (20:39)
[2021-09-01] MEDS ORDERED: morphine INJ 10 MG/ML 1ML (SYR OR VIAL) IVP ONE (20:45)
[2021-09-01] MEDS ORDERED: HYDROmorphone 2 MG/ML VIAL (DILAUDID) IV ONE (20:45)
--- NOTE | 2021-09-01 21:28 | Anesthesia-General Post-Op ---
General Patient Condition Mental Status/LOC: Same as Preop Cardiovascular: Satisfactory Nausea/Vomiting: Absent Respiratory: Satisfactory Pain: Controlled Complications: Absent Post Op Complications Complications None Follow Up Care/Instructions Patient Instructions None needed. Anesthesia/Patient Condition Patient Condition Patient is doing well, no complaints, stable vital signs, no apparent adverse anesthesia problems. No complications reported per nursing. AZAEL QUICK CRNA Sep 01, 2021 21:28
[2021-09-01] MEDS: ACETAMINOPHEN 500 MG TAB (TYLENOL) PO SCH (22:00)
[2021-09-02 01:40] VITALS: BP 107/58
[2021-09-02] MEDS: KETOROLAC 15 MG/ML VIAL IV SCH ×2 (01:41→09:20)
[2021-09-02 04:10] VITALS: BP 113/58
[2021-09-02 05:23] LABS: BASOPHILS % (AUTO) 0 % (0-10); EOSINOPHILS % (AUTO) 0 % (0-10); HEMATOCRIT 38 % (35-52); HEMOGLOBIN 12.6 g/dL (11.5-16.0); LYMPHOCYTES % (AUTO) 9 % (12-44); MEAN CORPUSCULAR HEMOGLOBIN 30 pg (25-34); MEAN CORPUSCULAR HGB CONC 33 g/dL (32-36); MEAN CORPUSCULAR VOLUME 91 fL (80-99); MEAN PLATELET VOLUME 10.8 fL (9.0-12.2); MONOCYTES # (AUTO) 0.2 10^3/uL (0.0-1.0); MONOCYTES % (AUTO) 2 % (0-12); NEUTROPHILS # (AUTO) 9.6 10^3/uL (1.8-7.8); NEUTROPHILS % (AUTO) 89 % (42-75); PLATELET COUNT 197 10^3/uL (130-400); WHITE BLOOD COUNT 10.7 10^3/uL (4.3-11.0)
[2021-09-02] MEDS: ACETAMINOPHEN 500 MG TAB (TYLENOL) PO SCH (07:00)
[2021-09-02] MEDS ORDERED: DOCUSATE SODIUM 100 MG (COLACE) CAP PO SCH (09:00)
[2021-09-02 09:25] VITALS: BP 113/61
--- NOTE | 2021-09-02 10:24 | Progress Note ---
Standard Progress Note Progress Notes/Assess & Plan Date Seen by a Provider: Sep 02, 2021 Time Seen by a Provider: 10:19 Progress/Assessment & Plan S: Patient was seen at the bedside. She is doing well with no complaints. Her pain is well controlled. She is tolerating a regular diet. She is ambulating and passing gas. Anticipates discharge this morning. O: VS - Last 72 Hours, by Label 09/01/21 09/01/21 09/01/21 09/01/21 15:52 20:15 20:15 20:20 Temp 36.6 37.1 Pulse 86 Resp 16 20 18 B/P (MAP) 133/90 (104) 138/78 (98) 125/78 (94) Pulse Ox 99 100 O2 Delivery Room Air OxyMask OxyMask OxyMask O2 Flow Rate 6 6 3 09/01/21 09/01/21 09/01/21 09/01/21 20:30 20:30 20:40 20:45 Resp 16 16 B/P (MAP) 123/81 (95) 121/78 (92) Pulse Ox 99 99 O2 Delivery OxyMask OxyMask OxyMask OxyMask O2 Flow Rate 2 2 2 2 09/01/21 09/01/21 09/01/21 09/01/21 20:50 21:00 21:00 21:10 Temp 36.4 Resp 18 20 16 B/P (MAP) 120/74 (89) 122/69 (86) 115/74 (88) Pulse Ox 99 98 97 O2 Delivery Room Air Room Air Room Air Room Air 09/01/21 09/01/21 09/01/21 09/01/21 21:15 21:35 22:05 22:30 Temp 36.6 36.1 36.1 Pulse 84 88 90 Resp 16 16 16 B/P (MAP) 112/57 (75) 120/66 (84) 118/64 (82) Pulse Ox 98 97 97 O2 Delivery Room Air Room Air Room Air Room Air 09/01/21 09/01/21 09/02/21 09/02/21 23:00 23:07 01:40 04:10 Temp 36.9 36.6 36.2 Pulse 94 95 82 Resp 16 16 16 B/P (MAP) 125/64 (84) 107/58 (74) 113/58 (76) Pulse Ox 97 98 98 O2 Delivery Room Air Room Air Room Air Room Air Laboratory Tests Test 09/01/21 16:08 09/02/21 05:15 Range/Units White Blood Count 9.4 10.7 4.3-11.0 10^3/uL Red Blood Count 4.46 4.16 3.80-5.11 10^6/uL Hemoglobin 13.5 12.6 11.5-16.0 g/dL Hematocrit 41 38 35-52 % Mean Corpuscular Volume 91 91 80-99 fL Mean Corpuscular Hemoglobin 30 30 25-34 pg Mean Corpuscular Hemoglobin Concent 33 33 32-36 g/dL Red Cell Distribution Width 13.1 12.8 10.0-14.5 % Platelet Count 225 197 130-400 10^3/uL Mean Platelet Volume 10.7 10.8 9.0-12.2 fL Immature Granulocyte % (Auto) 1 1 % Neutrophils (%) (Auto) 63 89 H 42-75 % Lymphocytes (%) (Auto) 25 9 L 12-44 % Monocytes (%) (Auto) 9 2 0-12 % Eosinophils (%) (Auto) 2 0 0-10 % Basophils (%) (Auto) 0 0 0-10 % Neutrophils # (Auto) 5.9 9.6 H 1.8-7.8 10^3/uL Lymphocytes # (Auto) 2.3 1.0 1.0-4.0 10^3/uL Monocytes # (Auto) 0.8 0.2 0.0-1.0 10^3/uL Eosinophils # (Auto) 0.2 0.0 0.0-0.3 10^3/uL Basophils # (Auto) 0.0 0.0 0.0-0.1 10^3/uL Immature Granulocyte # (Auto) 0.1 0.1 0.0-0.1 10^3/uL Sodium Level 137 135-145 MMOL/L Potassium Level 3.5 L 3.6-5.0 MMOL/L Chloride Level 106 98-107 MMOL/L Carbon Dioxide Level 19 L 21-32 MMOL/L Anion Gap 12 5-14 MMOL/L Blood Urea Nitrogen 8 7-18 MG/DL Creatinine 0.73 0.60-1.30 MG/DL Estimat Glomerular Filtration Rate 117 BUN/Creatinine Ratio 11 Glucose Level 102 70-105 MG/DL Calcium Level 9.1 8.5-10.1 MG/DL Human Chorionic Gonadotropin, Quant 7655 H <5 MIU/ML S/P: Laurita Mederos is a 26 yo POD#1 s/p diagnostic laparoscopy, right salpingectomy due to ectopic . # Routine postoperative care. We discussed the details of her procedure along with the intraoperative findings. I discussed with the patient that despite losing her right fallopian tube, she can get with her left fallopian tube. I encouraged her to follow-up with our office for postop follow-up and for gyne care in the event that she may need assistance with getting in the future. # Pain management: Toradol 15mg q6hrs scheduled for 3 doses, ibuprofen 600mg q6 hrs, tylenol 1000mg q8hrs, and oxycodone 5mg q4hr PRNs. # Heme: preop hgb 13.5 --> 12.6. No s/s of anemia # Diet: regular diet as tolerated. # DVT ppx: SCDs in place. # Dispo: Anticipate discharge today with plans for follow-up in office in 1-2 weeks. Final Diagnosis Right ectopic without rupture in right fallopian tube DAVIS LONG MD Sep 02, 2021 10:24
--- NOTE | 2021-09-02 10:28 | Discharge Inst-Simple/Standard ---
Discharge Inst-Standard Reconcile Patient Problems Problems Reviewed?: Yes Discharge Medications New, Converted or Re-Newed RX: Transmitted to Pharmacy Patient Instructions/Follow Up Plan of Care/Instructions/FU: Follow-up in 1-2 weeks for a postop appointment. Please follow-up with us in office for OBGYN care. Activity as Tolerated: Yes Discharge Diet: No Restrictions DAVIS LONG MD Sep 02, 2021 10:28
[2021-09-02] MEDS ORDERED: DOCU100C37 PO (10:29)
[2021-09-02] MEDS ORDERED: ONDA4TAB11 PO (10:29)
[2021-09-02] MEDS ORDERED: IBUP-844 PO (10:29)
[2021-09-02] MEDS ORDERED: ACET-93 PO (10:29)
[2021-09-02] MEDS ORDERED: OXC5T PO (10:29)
[2021-09-03] MEDS ORDERED: IBUPROFEN 600 MG (MOTRIN) TAB PO SCH
== END 2021-09-02 13:15 | disposition home or self-care (01) ==
LOC: EDUNIT# 15:44 → ER 15:46 → SDC 18:04 → WS 21:50 → SDC 09-02 13:15
PROVIDERS: ATTEND Obstetrics & Gynecology
DX: O00.90 Unspecified ectopic pregnancy without intrauterine pregnancy (principal)
CPT/HCPCS: 36415; 80048; 84702; 85025; 94664; 96360

== ENCOUNTER → 2021-09-01 | Outpatient (CLI) | payer OTHER ==
[~2021-09-01] MED LIST changes: +ACET-93 PO; +DOCU100C37 PO; +IBUP-844 PO; +NF-CLINOV VG; +ONDA4TAB11 PO; +OXC5T PO; +PREN-8 PO
--- NOTE | 2021-09-01 16:29 | Diagnostic Imaging Report ---
TECHNIQUE: Live grayscale and color Doppler ultrasound was performed of the pelvis, transabdominally and endovaginally. REASON FOR EXAM: . Vaginal bleeding. COMPARISON: None. FINDINGS: No intrauterine gestation is visualized. The uterus measures 7.2 x 3.9 x 5.0 cm. The endometrial stripe measures 1.0 cm in thickness and has a normal appearance. No focal uterine mass. A live ectopic is seen within the left ovary with a crown-rump length of 0.4 cm, consistent with a 6 week 1 day gestation. heart tones are present and measure 133 bpm. No associated torsion is seen in the left ovary. The right ovary is unremarkable. No free fluid is seen in the pelvis. IMPRESSION: Ectopic within the left ovary. No associated torsion or evidence of free fluid in the pelvis. Preliminary results were given to Dr. Lozoya immediately following the exam, by the bowling alley manager. Dictated by: Dictated on workstation # [id number]
== END ==
LOC: RAD 15:15
PROVIDERS: ATTEND Surgery
DX: O26.859 Spotting complicating pregnancy, unspecified trimester (principal); Z3A.00 Weeks of gestation of pregnancy not specified
CPT/HCPCS: 76801; 76817

== ENCOUNTER 2021-09-06 15:59 | Emergency (ER) | payer OTHER ==
[~2021-09-06] VITALS: Ht 160 cm; Wt 83.9 kg
[~2021-09-06 15:59] MED LIST changes: +ACET-93 PO; +DOCU100C37 PO; +IBUP-844 PO; +ONDA4TAB11 PO; +OXC5T PO
--- NOTE | 2021-09-06 16:19 | ED GU-Female ---
General Chief Complaint: - Reproductive Stated Complaint: VAG BLEEDING Source: patient Exam Limitations: no limitations History of Present Illness Date Seen by Provider: September 06, 2021 Time Seen by Provider: 16:18 Initial Comments Patient is a 26-year-old female who presents to the ED for vaginal bleeding post surgery. Patient states she had an ectopic with surgical intervention last Saturday by Dr. Devine. She was discharged Saturday. Was initially having some intermittent spotting with intermittent cramping. She did vomit a few times last night. Woke up this morning passed a large clot. Since then she noticed some heavier bleeding. She has went through 2 pads today. She noted blood in her urine as well. She rates pain 3 out of 10 located near the umbilicus around the surgical site. She denies any fever, chest pain, shortness of breath, headache, dizziness. Allergies and Home Medications Allergies Coded Allergies: No Known Drug Allergies (Unverified , 08/06/11) Patient Home Medication List Home Medication List Reviewed: Yes Acetaminophen (Acetaminophen) 500 Mg Tablet, 1,000 MG PO Q8HR Prescribed by: Sonia Devine on 09/02/21 1029 Cefdinir (Cefdinir) 300 Mg Capsule, 300 MG PO BID Prescribed by: PEDRO WHITEHEAD on 12/02/19 1128 Clindamycin HCl (Cleocin) 100 Mg Supp, 100 MG VG HS Prescribed by: CHELSEA BRITO on 08/30/21 220 Docusate Sodium (Docusate Sodium) 100 Mg Capsule, 100 MG PO BID Prescribed by: Sonia Devine on 09/02/21 1029 Ibuprofen (Ibu) 600 Mg Tablet, 600 MG PO Q6HR Prescribed by: Sonia Devine on 09/02/21 1029 Ondansetron (Ondansetron Odt) 4 Mg Tab.rapdis, 4 MG PO Q6H PRN for NAUSEA/VOMITING-1ST LINE Prescribed by: Sonia Devine on 09/02/21 1029 Oxycodone Hcl (Oxyir Tablet) 5 Mg Tab, 5 MG PO Q4HR PRN for PAIN-SEE DOSE INSTRUCTIONS Prescribed by: Sonia Devine on 09/02/21 1030 Vit W-Ca,Fe,FA(<1 mg) ( Formula) 28 Mg Iron-800 Mcg Tablet, 1 EACH PO DAILY Prescribed by: CHELSEA BRITO on 08/30/21 2206 Discontinued Medications Acetaminophen (Tylenol) 325 Mg Capsule, 650 MG PO BID PRN for PAIN-MILD (1-4), (Reported) Entered as Reported by: CHERELLE EL on 11/30/19 1018 Review of Systems Review of Systems Constitutional: No see HPI, No chills, No diaphoresis EENTM: No no symptoms reported, No blurred vision, No double vision, No dental problems, No hoarseness, No mouth pain Respiratory: No cough, No dyspnea on exertion, No orthopnea, No short of breath Cardiovascular: No chest pain, No edema Gastrointestinal: abdominal pain; No diarrhea; nausea, vomiting Genitourinary: denies burning, denies discharge; hematuria Musculoskeletal: No back pain, No joint pain Skin: No change in color, No change in hair/nails All Other Systemes Reviewed Negative Unless Noted: Yes Past Nownggr-Ubgaee-Xjqxcv Hx Patient Social History Tobacco Use?: No Substance use?: No Alcohol Use?: No Pt feels they are or have been: No Immunizations Up To Date Tetanus Booster (TDap): Less than 5yrs PED Vaccines UTD: Yes Seasonal Allergies Seasonal Allergies: No Past Medical History Surgery/Hospitalization HX: r fallopian tube removed Surgeries: No Respiratory: No Currently Using CPAP: No Currently Using BIPAP: No Cardiac: No Neurological: No Genitourinary: Yes (HOSPITALIZED ONE TIME FOR UTI) Gastrointestinal: No Musculoskeletal: No Endocrine: No HEENT: Yes (HAD PERITONSILLAR ABSCESS. NO SURGERY. ) Cancer: No Psychosocial: No Integumentary: No Physical Exam Vital Signs Vital Signs - First Documented 09/06/21 16:12 Temp 37.7 Pulse 88 Resp 16 B/P (MAP) 132/89 (103) Pulse Ox 96 Capillary Refill : Height, Weight, BMI Height: 5'3" Weight: 120lbs. oz. 54.158204oy; 32.00 BMI Method:Estimated General Appearance: WD/WN, no apparent distress HEENT: PERRL/EOMI, normal ENT inspection, TMs normal, pharynx normal Neck: non-tender, full range of motion, supple, normal inspection Cardiovascular: regular rate, rhythm, no edema, no gallop, no JVD Respiratory: chest non-tender, lungs clear, normal breath sounds, no respiratory distress, no accessory muscle use Gastrointestinal: normal bowel sounds, soft, no organomegaly, other (Mild umbilicus tenderness. Healing surgical wound noted to the umbilicus lower pelvic bilateral. No surrounding redness. 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, no motor/sensory deficits, alert, normal mood/affect Skin: normal color, warm/dry Progress/Results/Core Measures Suspected Sepsis SIRS Temperature: Pulse: Respiratory Rate: Laboratory Tests 09/06/21 16:30: White Blood Count 8.6 Blood Pressure / Mean: Laboratory Tests 09/06/21 16:30: Creatinine 0.75, Platelet Count 238, Total Bilirubin 0.3 Results/Orders Lab Results Laboratory Tests Test 09/06/21 16:22 09/06/21 16:30 Range/Units Urine Color RED H Urine Clarity CLOUDY Urine pH 7.0 5-9 Urine Specific [place] 1.020 1.016-1.022 Urine Protein TRACE H NEGATIVE Urine Glucose (UA) NEGATIVE NEGATIVE Urine Ketones NEGATIVE NEGATIVE Urine Nitrite NEGATIVE NEGATIVE Urine Bilirubin NEGATIVE NEGATIVE Urine Urobilinogen 0.2 < = 1.0 MG/DL Urine Leukocyte Esterase NEGATIVE NEGATIVE Urine RBC (Auto) 3+ H NEGATIVE Urine RBC >100 H /HPF Urine WBC 5-10 H /HPF Urine Squamous Epithelial Cells 0-2 /HPF Urine Renal Epithelial Cells NONE /HPF Urine Crystals NONE /LPF Urine Bacteria NEGATIVE /HPF Urine Casts NONE /LPF Urine Mucus NEGATIVE /LPF Urine Culture Indicated NO White Blood Count 8.6 4.3-11.0 10^3/uL Red Blood Count 4.39 3.80-5.11 10^6/uL Hemoglobin 13.2 11.5-16.0 g/dL Hematocrit 40 35-52 % Mean Corpuscular Volume 91 80-99 fL Mean Corpuscular Hemoglobin 30 25-34 pg Mean Corpuscular Hemoglobin Concent 33 32-36 g/dL Red Cell Distribution Width 13.0 10.0-14.5 % Platelet Count 238 130-400 10^3/uL Mean Platelet Volume 10.7 9.0-12.2 fL Immature Granulocyte % (Auto) 1 % Neutrophils (%) (Auto) 57 42-75 % Lymphocytes (%) (Auto) 31 12-44 % Monocytes (%) (Auto) 8 0-12 % Eosinophils (%) (Auto) 3 0-10 % Basophils (%) (Auto) 0 0-10 % Neutrophils # (Auto) 4.9 1.8-7.8 X 10^3 Lymphocytes # (Auto) 2.7 1.0-4.0 X 10^3 Monocytes # (Auto) 0.7 0.0-1.0 X 10^3 Eosinophils # (Auto) 0.3 0.0-0.3 10^3/uL Basophils # (Auto) 0.0 0.0-0.1 10^3/uL Immature Granulocyte # (Auto) 0.1 0.0-0.1 10^3/uL Sodium Level 139 135-145 MMOL/L Potassium Level 3.9 3.6-5.0 MMOL/L Chloride Level 108 H 98-107 MMOL/L Carbon Dioxide Level 20 L 21-32 MMOL/L Anion Gap 11 5-14 MMOL/L Blood Urea Nitrogen 8 7-18 MG/DL Creatinine 0.75 0.60-1.30 MG/DL Estimat Glomerular Filtration Rate 113 BUN/Creatinine Ratio 11 Glucose Level 117 H 70-105 MG/DL Calcium Level 8.8 8.5-10.1 MG/DL Corrected Calcium 8.7 8.5-10.1 MG/DL Total Bilirubin 0.3 0.1-1.0 MG/DL Aspartate Amino Transf (AST/SGOT) 38 H 5-34 U/L Alanine Aminotransferase (ALT/SGPT) 50 0-55 U/L Alkaline Phosphatase 73 40-136 U/L Total Protein 7.0 6.4-8.2 GM/DL Albumin 4.1 3.2-4.5 GM/DL Human Chorionic Gonadotropin, Quant 175 H <5 MIU/ML My Orders Orders - LUCÍA ALEXANDER Cbc With Automated Diff (09/06/21 16:17) Comprehensive Metabolic Panel (09/06/21 16:17) Ua Culture If Indicated (09/06/21 16:17) Hcg,Quantitative (09/06/21 16:32) Vital Signs/I&O 09/06/21 09/06/21 16:12 17:33 Temp 37.7 Pulse 88 84 Resp 16 16 B/P (MAP) 132/89 (103) 132/89 Pulse Ox 96 98 Capillary Refill : Departure Communication (PCP) Patient had a laparoscopy removal of a ectopic of of her right fallopian tube on 01 September. Has had intermittent bleeding with heavier bleeding today. Noted a large blood clot this morning. She Went through 2 pads this afternoon. She Rates abdominal pain 3 out of 10. On exam no severe tenderness. Tenderness around the surgical sites. No evidence of surrounding infection. Small amount of bruising. Urinalysis negative for infection. Normal hemoglobin and white blood count. Beta quant 175. Discussed patient with Dr. Avitia CLINICAL EDUCATION COORDINATOR who recommended lab work rule out anemia, infection. Patient did not go through any pads during her stay here. She does not appear toxic. Patient is scheduled to follow-up with Dr. Avitia CLINICAL EDUCATION COORDINATOR in the morning at 1030. Dr. Avitia felt like this is more bleeding however does want further evaluation in the morning. She recommended follow-up in the office with no further treatment if lab work is unremarkable. No surgical abdomen. Patient appears nontoxic. Continue wearing pads until then. If any worsening symptoms such as worsening bleeding, lethargy, weakness to return back to ED. Impression Primary Impression: Vaginal bleeding Disposition: HOME, SELF-CARE Condition: Stable Departure-Patient Inst. Decision time for Depature: 17:22 Referrals: SANDY WILKINSON MD (PCP) Primary Care Physician CATHY GREEN DO (Family) Primary Care Physician JENNY AVITIA MD Patient Instructions: Bleeding Work/School Note: Work Release Form Date Seen in the Emergency Department: September 06, 2021 Return to Work: September 08, 2021 LUCÍA ALEXANDER September 06, 2021 16:19
[2021-09-06 16:39] LABS: BILIRUBIN,URINE NEGATIVE (NEGATIVE); CLARITY,URINE CLOUDY; COLOR,URINE RED; GLUCOSE, URINE (UA) NEGATIVE (NEGATIVE); KETONES,URINE NEGATIVE (NEGATIVE); LEUKOCYTE ESTERASE ,URINE NEGATIVE (NEGATIVE); NITRITE,URINE NEGATIVE (NEGATIVE); PROTEIN,URINE TRACE (NEGATIVE)
[2021-09-06 16:42] LABS: BASOPHILS % (AUTO) 0 % (0-10); EOSINOPHILS # (AUTO) 0.3 10^3/uL (0.0-0.3); EOSINOPHILS % (AUTO) 3 % (0-10); HEMATOCRIT 40 % (35-52); HEMOGLOBIN 13.2 g/dL (11.5-16.0); LYMPHOCYTES # (AUTO) 2.7 X 10^3 (1.0-4.0); LYMPHOCYTES % (AUTO) 31 % (12-44); MEAN CORPUSCULAR HEMOGLOBIN 30 pg (25-34); MEAN CORPUSCULAR HGB CONC 33 g/dL (32-36); MEAN CORPUSCULAR VOLUME 91 fL (80-99); MEAN PLATELET VOLUME 10.7 fL (9.0-12.2); MONOCYTES # (AUTO) 0.7 X 10^3 (0.0-1.0); MONOCYTES % (AUTO) 8 % (0-12); NEUTROPHILS # (AUTO) 4.9 X 10^3 (1.8-7.8); NEUTROPHILS % (AUTO) 57 % (42-75); PLATELET COUNT 238 10^3/uL (130-400); WHITE BLOOD COUNT 8.6 10^3/uL (4.3-11.0)
[2021-09-06 16:50] LABS: ALBUMIN 4.1 GM/DL (3.2-4.5)
[2021-09-06 16:51] LABS: POTASSIUM 3.9 MMOL/L (3.6-5.0)
[2021-09-06 16:52] LABS: CALCIUM 8.8 MG/DL (8.5-10.1)
[2021-09-06 16:55] LABS: BILIRUBIN,TOTAL 0.3 MG/DL (0.1-1.0)
[2021-09-06 16:56] LABS: BACTERIA,URINE NEGATIVE /HPF; RBC,URINE >100 /HPF; SQUAMOUS EPITHELIAL CELL,UR 0-2 /HPF
[2021-09-06 16:57] LABS: CREATININE SERUM 0.75 MG/DL (0.60-1.30)
[2021-09-06 17:33] VITALS: BP 132/89
== END 2021-09-06 17:32 | disposition home or self-care (01) ==
LOC: EDUNIT# 15:59 → ER 16:05
DX: N99.821 Postprocedural hemorrhage of a genitourinary system organ or structure following other procedure (principal); Z87.59 Personal history of other complications of pregnancy, childbirth and the puerperium
CPT/HCPCS: 36415; 80053; 81000; 84702; 84703; 85025

== ENCOUNTER → 2021-09-07 | Outpatient (CLI) | payer OTHER | LOC: LABNPT 14:22 | PROVIDERS: ATTEND Nurse Practitioner Women's Health | DX: Z11.3 Encounter for screening for infections with a predominantly sexual mode of transmission (principal) | CPT/HCPCS: 87491; 87591 ==